=== PATIENT | male | born 1995 | race Caucasian/White ===

== ENCOUNTER 2022-12-31 15:28 | Emergency (ER) | payer OTHER, SELFPAY ==
--- NOTE | ~2022-12-31 | XR_ITS ---
EXAMINATION: XR CHEST CLINICAL INFORMATION: Shortness of breath. COMPARISON: None available. TECHNIQUE: 2 views of the chest were obtained. FINDINGS: Limited examination secondary to patient body habitus. No focal airspace opacity, pleural effusion or pneumothorax. No significant cardiomediastinal contour abnormality. No acute osseous findings. XR/XR chest 2V IMPRESSION: Limited examination secondary to patient body habitus without discrete acute cardiopulmonary findings.
--- NOTE | ~2022-12-31 | US_ITS ---
EXAMINATION: US VENOUS ULTRASOUND WITH DOPPLER LOWER EXTREMITY, BILATERAL CLINICAL INFORMATION: Pain. COMPARISON: None available. TECHNIQUE: Ultrasound of the deep veins is performed from the hip to the calf with compression sonography and color and pulse Doppler assessment. Spectral analysis with color-flow imaging is performed. FINDINGS: Examination is somewhat limited due to patient body habitus. RIGHT: There is normal venous compression and respiratory variation and augmented flow. The visualized common femoral vein, superficial femoral vein, profunda femoral vein, popliteal vein, and the trifurcation region shows no evidence of deep venous thrombosis. There is no significant popliteal fossa cyst. LEFT: There is normal venous compression and respiratory variation and augmented flow. The visualized common femoral vein, superficial femoral vein, profunda femoral vein, popliteal vein, and the trifurcation region shows no evidence of deep venous thrombosis. There is no significant popliteal fossa cyst. If the patient's symptoms persist, followup ultrasound in 5 days 7 days might be of value to exclude proximal propagation from a non-visualized calf vein. US/US venous duplex LE BI IMPRESSION: No DVT demonstrated in the bilateral lower extremities with the caveat that evaluation is partially limited due to patient body habitus. As above, a follow-up ultrasound in 5-7 days could be obtained as clinically indicated.
--- NOTE | 2022-12-31 15:42 | ED.GENADULT ---
HPI - General Adult General Chief complaint: Weakness Stated complaint: weakness in legs and arms Time Seen by Provider: 12/31/22 20:05 Source: patient, family (Patient's father), RN notes reviewed and old records reviewed Mode of arrival: ambulatory Limitations: no limitations History of Present Illness HPI narrative: 27-year-old male past medical history significant for obesity, asthma presents for evaluation of multiple complaints. Patient reports that he has not felt well with shortness of breath for the last 2 or 3 weeks He also endorses leg swelling for the last 2 or 3 weeks Denies any history of DVT or PE Patient states that his symptoms got significantly worse today to the point where he felt like he could not breathe at all He has reports that his left arm was shaking at the time which has not Currently the patient is quite comfortable. He denies any pain The patient endorses a poor diet and sedentary lifestyle Related Data Allergies Allergy/AdvReac Type Severity Reaction Status Date / Time No Known Allergies Allergy Verified 12/31/22 15:47 Review of Systems Constitutional: Constitutional: Reports lethargy and Reports malaise Cardiovascular: Cardiovascular: Reports leg edema, Reports dyspnea and Reports dyspnea on exertion Respiratory: Respiratory: Reports dyspnea and Reports dyspnea on exertion Gastrointestinal: Gastrointestinal: Denies abdominal pain, Denies nausea and Denies vomiting Musculoskeletal: Musculoskeletal: Denies back pain Integumentary/Breasts: Skin/Breast: Denies rash PMFSH Social History Social History Advance Directives: No Advance Directives Information Provided: Yes Physical Exam ED Vital Signs: Vital Signs - 24 hr 12/31/22 15:45 12/31/22 19:55 12/31/22 22:08 Temperature 97.4 F 99.0 F 98.6 F Pulse Rate 102 H 93 86 Respiratory Rate 20 18 18 Blood Pressure 170/102 H 153/104 H 167/97 H Pulse Oximetry 96 96 94 Oxygen Delivery Method Room Air Room Air Room Air BMI result Body Mass Index 52.1 Const General: healthy appearing, comfortable, no acute distress, alert and awake Nutritional Appearance: well nourished and obese Orientation/consciousness: patient oriented x3 HENMT Head: Yes normocephalic and Yes atraumatic Eyes Eyelids: Yes eyelids normal Conjunctivae: conjunctivae normal Sclerae: sclerae normal Corneas: corneas normal Pupils: Equal, round and reactive pupils present EOM: EOMs intact bilaterally Neck Neck: Yes full ROM Resp Effort & Inspection: normal respiratory effort, able to speak in complete sentences, no audible wheezes and not labored Auscultation: clear to auscultation bilaterally Skin General skin exam: no rashes or lesions noted and elasticity normal Neuro General: patient oriented x3 Cranial nerves: Yes Equal, round and reactive pupils present and Yes Bilaterally intact EOM present Cognition (Neuro): normal cognition Extrem Other: Moving all extremities well without any obvious deformities Course Course Course Narrative: This is a rapid medical exam: Additional HPI, ROS, PE not included below will be deferred to primary provider. Patient is a 27-year-old male with complaint of bilateral leg weakness while at work today, states he also felt shaky and was having bilateral hand tremors. Reports last week had an episode of acute shortness of breath and had to use someone else's inhaler. States has not seen a doctor in the last 20 years. Denies recent fevers. Denies chest pain or dyspnea currently. Denies dizziness or vision changes. Plan: labs, UA Reevaluation(s) Reevaluation #1: Discussed all results with the patient including ultrasound report suggesting repeat ultrasound in 5-7 days. Patient was educated on lifestyle changes including diet and exercise and he will be discharged to follow-up with his PCP Time: 22:53 Medical Decision Making Medical Decision Making [facility] Narrative: 27-year-old male presents for evaluation of shortness of breath and leg swelling. He denies any medical history with exception of he believes he has asthma. He has been using an [id number] inhaler with some relief of his symptoms. The patient is currently well appearing, vital signs are stable and he is asymptomatically exception of his leg swelling. He does have a sedentary lifestyle so will get ultrasound to rule out DVT. I feel this is less likely his symptoms are bilateral. No evidence of skin infection to suggest cellulitis. Will get chest x-ray to evaluate for pleural effusion/pneumonia given the shortness of breath and I added on a BNP. The patient's symptoms may be related to his morbid obesity with some degree of anxiety, thus far his workup has been unremarkable. Differential Diagnosis Shortness of breath Congestive heart failure Bronchitis Pneumonia DVT Obesity Sleep apnea Lab Data [facility] Lab Attestation statement: I reviewed the patient's lab results. Normal CBC, no significant chemistry abnormalities 12/31/22 16:24 12/31/22 16:24 Labs: Lab Results 12/31/22 12/31/22 12/31/22 Range/Units 16:24 16:24 19:57 WBC 10.2 (4.8-10.8) X10*3/uL RBC 4.91 (4.60-5.80) X10*6/uL Hgb 14.3 (14.0-18.0) g/dl Hct 43.4 (42.0-52.0) % MCV 88.4 (80.0-98.0) fL MCH 29.1 (27.0-33.0) pg MCHC 32.9 (31.0-36.0) g/dl RDW 11.9 (11.0-16.0) % Plt Count 231 (160-400) X10*3/uL MPV 10.5 (9.4-12.4) fL Immature Gran % (Auto) 0.5 H (0.0-0.4) % Neut % (Auto) 69.6 (45-73) % Lymph % (Auto) 19.6 L (20-40) % [place] % (Auto) 8.1 (2-11) % Eos % (Auto) 1.8 (0-4) % Baso % (Auto) 0.4 (0-2) % Lymph # (Auto) 2.0 (1.2-4.9) X10*3/uL [place] # (Auto) 0.8 (0.1-1.2) X10*3/uL Eos # (Auto) 0.2 (0.0-0.4) X10*3/uL Baso # (Auto) 0.0 (0.0-0.2) X10*3/uL Abs Immat Gran (auto) 0.05 H (0.00-0.03) X10*3/uL Absolute Neuts (auto) 7.1 (2.0-8.3) x10*3/uL Absolute Nucleated RBC 0.000 (0.0-0.012) X10*3/uL Nucleated RBC % (auto) 0.0 (0.0-0.2) /100WBC Sodium 139 (135-145) mmol/L Potassium 4.0 (3.3-5.1) mmol/L Chloride 104 (96-108) mmol/L Carbon Dioxide 27 (22-29) mmol/L Anion Gap 12 (12-20) BUN 16 (9-16) mg/dL Creatinine 0.90 (0.5-1.4) mg/dL Estim Creat Clear Calc 210.5 Estimated GFR > 60 Random Glucose 100 (60-115) mg/dL Calcium 9.3 (8.4-10.2) mg/dL Magnesium 1.9 (1.6-2.6) mg/dL Urine Color Yellow Urine Appearance Clear Urine pH 5.5 (5.0-9.0) Ur Specific Marissa 1.015 (1.005-1.025) Urine Protein Negative (Neg-Trace) mg/dL Urine Glucose (UA) Negative (Negative) mg/dL Urine Ketones Negative (Negative) mg/dL Urine Blood Negative (Negative) Urine Nitrite Negative (Negative) Ur Leukocyte Esterase Negative (Negative) Independent Interpretation I performed an independent interpretation of an: Plain X-Ray (No acute infiltrates) Radiology Impression Discussion of test interpretation with radiology: I have reviewed the radiologist's reading. (No evidence of DVT) Discharge Plan Discharge Clinical Impression: Shortness of breath, Dependent edema, Obesity Patient Disposition: Home, Self-Care Instructions: Heart Healthy Diet (ED) Additional Instructions: Your workup in the emergency department today was reassuring. Your blood work was within normal limits. Her chest x-ray was clear Your ultrasound does not show any evidence of blood clots. However the radiologist does recommend repeating an ultrasound in about 1 week Follow-up with your primary doctor or return for new or worsening symptoms
[2022-12-31 15:45] VITALS: BP 170/102; PULSE 102; RESP 20; TEMP 36.3; O2SAT 96; BMI 52.1
[2022-12-31 16:32] LABS: MANUAL DIFF FLAG NO
[2022-12-31 16:50] LABS: Basophils Percent Auto 0.4 % (0-2); Eosinophils Absolute Auto 0.2 X10*3/uL (0.0-0.4); Eosinophils Percent Auto 1.8 % (0-4); Hematocrit 43.4 % (42.0-52.0); Hemoglobin 14.3 g/dl (14.0-18.0); Imm Gran Abs Auto 0.05 X10*3/uL (0.00-0.03); Imm Gran Pct Auto 0.5 % (0.0-0.4); Lymphocytes Percent Auto 19.6 % (20-40); Mean Corpuscular HGB Conc 32.9 g/dl (31.0-36.0); Mean Corpuscular Hemoglobin 29.1 pg (27.0-33.0); Mean Corpuscular Volume 88.4 fL (80.0-98.0); Mean Platelet Volume 10.5 fL (9.4-12.4); Monocytes Absolute Auto 0.8 X10*3/uL (0.1-1.2); Monocytes Percent Auto 8.1 % (2-11); Neutrophils Absolute Auto 7.1 x10*3/uL (2.0-8.3); Neutrophils Percent Auto 69.6 % (45-73); Platelet Count 231 X10*3/uL (160-400); Red Blood Count 4.91 X10*6/uL (4.60-5.80); Red Cell Distribution Width 11.9 % (11.0-16.0); White Blood Count 10.2 X10*3/uL (4.8-10.8)
[2022-12-31 16:53] LABS: Anion Gap 12 (12-20); Blood Urea Nitrogen 16 mg/dL (9-16); Calcium 9.3 mg/dL (8.4-10.2); Carbon Dioxide 27 mmol/L (22-29); Chloride 104 mmol/L (96-108); Creatinine Clr Calc Pharmacy 210.5; Estimated Glomerular Filt Rate > 60; Glucose Random 100 mg/dL (60-115); Magnesium 1.9 mg/dL (1.6-2.6); Sodium 139 mmol/L (135-145)
[2022-12-31 19:55] VITALS: BP 153/104; PULSE 93; RESP 18; TEMP 37.2; O2SAT 96
[2022-12-31 20:04] LABS: Appearance Urine Clear; Color Urine Yellow; Glucose Urine UA Negative (Negative); Leukocyte Esterase Urine Negative (Negative); Nitrite Urine Negative (Negative); PH 5.5 (5.0-9.0); Specific Gravity - Urine 1.015 (1.005-1.025); Urine Blood Negative (Negative); Urine Ketones Negative (Negative); Urine Protein Negative (Neg-Trace)
[2022-12-31 22:08] VITALS: BP 167/97; PULSE 86; RESP 18; TEMP 37; O2SAT 94
[2022-12-31 23:31] LABS: B Type Natriuretic Peptide < 10 pg/mL (<100)
== END 2022-12-31 23:04 | disposition home or self-care (01) ==
PROVIDERS: Physician Assistant; Registered Nurse Emergency; Emergency Provider Emergency Medicine
DX: R06.02 Shortness of breath (principal); R60.0 Localized edema; R53.1 Weakness; Z79.899 Other long term (current) drug therapy
CPT/HCPCS: 36415; 71046; 80048; 81003; 83735; 83880; 85025; 93970; 99283; 99284

== ENCOUNTER 2024-08-17 14:54 | Outpatient (AMB) | payer OTHER, SELFPAY ==
[2024-08-17 15:38] VITALS: BP 148/90; PULSE 87; TEMP 36.4; O2SAT 97; BMI 54.6
--- NOTE | 2024-08-17 15:38 | A.OFFPC_ITS ---
Vital Signs 08/17/24 15:38 Height 5 ft 10.24 in Weight 383 lb 6 oz BMI 54.6 BP 148/90 H Blood Pressure Location Lt brachial Position Sitting Pulse 87 Pulse Source Pulse Oximeter Temp 97.5 F Temp Source Temporal Artery Scan Pulse Oximetry (%) 97 Oxygen Delivery Method Room Air Intake Visit Reasons: New patient Intake Note: Patient is a new patient here to establish care for swelling of both legs, nose bleeds, HTN, ADHD, Autism, Obese, Asthma. Transferring care from [facility]. Medical records have been requested today. Insole Lip Turner Required: No Accompanied by: Grand Parent Allergies No Known Allergies Allergy (Verified 08/17/24 15:52) Medication List - Last Reconciled 08/17/24 by Richard Head PA-C No Known Home Meds Tobacco use date assessed: 08/17/24 Dental Screening Dental Screen Date: 08/17/24 Did you have a dental visit in the last 12 months?: Yes Did you have a dental problem in the last 6 months where you did not have access to dental care?: No Was dental information given to patient?: Patient has dentist HPI New patient HPI Details The patient is a 28-year-old male presenting with multiple health concerns focusing primarily on high blood pressure, obstructive sleep apnea, ADHD and autism spectrum disorder. His elevated blood pressure has been noted for some time, correlating with a significant family history of hypertension. Despite previous emergency interventions for subsequent leg swelling, he has not pursued pharmacological management. Autism spectrum disorder:/ ADHD Has been diagnosed as a child, has been having social issues. Had a job a few years ago though was unable to continue his job due to symptoms related to his autism. Family looking for support for both his brother and him as they both have autism and ADHD. Currently unable to work or landed part-time job due to the diagnosis of ADHD and autism. Obstructive sleep apnea remains a central concern. Although CPAP therapy was introduced, its discontinuation was due to non-compliance with treatment, resulting from discomfort and financial constraints. His apnea condition has been further aggravated by weight gain, compounding his overall health risks including dyslipidemia and fatty liver disease indications. Asthma represents another long-standing issue, with recent exacerbations following a viral respiratory illness. Although managed previously, his asthma appears to augment the complexity of his respiratory concerns, especially when combined with his history of childhood asthma and intermittent seasonal allergic symptoms. Complicated by a history of hemorrhoids, fluctuating symptoms present ongoing discomfort, albeit currently stabilized. The patient's health is further complicated by incidents of nephrolithiasis and episodic nasal bleeding, denoting an overarching need for structured health intervention and management. [facility] Social History Housing: House e-Cigarette/Vaping Use: Never Used service: No Current occupational status: unemployed Cognitive needs: No Hearing needs: No Vision needs: No Questionnaire PHQ-9 Over the last 2 weeks, how often have you been bothered by any of the following problems? 1. Little interest or pleasure in doing things: several days 2. Feeling down, depressed, or hopeless: not at all 3. Trouble falling or staying asleep, or sleeping too much: nearly every day 4. Feeling tired or having little energy: several days 5. Poor appetite or overeating: nearly every day 6. Feeling bad about yourself - or that you are a failure or have let yourself or your family down: not at all 7. Trouble concentrating on things, such as reading the newspaper or watching television: not at all 8. Moving or speaking so slowly that other people could have noticed. Or the opposite - being so fidgety or restless that you have been moving around a lot more than usual: not at all 9. Thoughts that you would be better off or of hurting yourself in some way: not at all Total score: 8 Depression Screening Interpretation: Positive Depression Screening Follow-up: Existing condition Depression Screening Done: Yes 81169 - PHQ-9 Billing: Yes Source: Developed by Drs. Bay Guevara, Tammie Pacheco, González Pennington and colleagues, with an educational wil from [employer]. Thrive Questionnaire I am a: Patient What is your living situation today?: I have a steady place to live Within the past 12 months, did the food you bought not last and you didn't have the money to get more?: Sometimes True Within the past 12 months, did you worry whether your food would run out before you got money to buy more?: Sometimes True Do you have trouble paying for medicines?: Yes Do you have trouble getting transportation to medical appointments?: No Do you have trouble paying your heating and electricity bill?: No Do you have trouble taking care of your child, family member or friend?: No Do you have trouble with day-to-day activities such as bathing, preparing meals, shopping, managing finances, etc.?: Yes Are you currently unemployed and looking for a job?: Yes Are you interested in more education?: Yes Please select the resources that you would like help with: Job search/training Currently or been in a relationship where the following occur: No concerns reported THRIVE Score: 2 AUDIT C Alcohol Use Questionnaire (AUDIT-C) 1. How often do you have a drink containing alcohol?: Monthly or less 2. How many drinks containing alcohol do you have on a typical day when you are drinking?: 1 or 2 3. How often do you have six or more drinks on one occasion?: Never Total Score: 1 SULEMAN-7 AMB Questionnaire SULEMAN-7 Feeling nervous, anxious, or on edge: 0 = Not at all Not being able to stop or control worryin = Not at all Worrying too much about different things: 0 = Not at all Trouble relaxin = Not at all Being so restless that it is hard to sit still: 0 = Not at all Becoming easily annoyed or irritable: 1 = Several days Feeling afraid as if something awful might happen: 0 = Not at all Total SULEMAN-7 score (0-4 normal; 5-9 mild; 10-14 moderate; 15-21 severe): 1 Source: Developed by Drs. Bay Guevara, Tammie Pacheco, González Pennington and colleagues, with an educational wil from [employer]. SULEMAN-7 Assessment Billing SULEMAN-7 Assessment Tool: SULEMAN-7 Assessment 57235 Review of Systems Const Denies headache(s) Eyes Denies loss of vision ENT Denies vertigo, Denies dizziness, Denies headache(s) and Denies sore throat Card Denies chest pain, Denies leg edema and Denies lightheadedness Resp Denies cough, Denies hemoptysis and Denies wheezing GI Denies abdominal pain, Denies melena, Denies constipation, Denies diarrhea and Denies vomiting Denies dysuria, Denies urinary frequency and Denies urinary urgency Musc Denies arthralgias, Denies joint swelling, Denies numbness and Denies tingling Neuro Denies Abnormal speech present, Denies behavioral changes, Denies vertigo, Denies dizziness, Denies headache(s), Denies loss of vision, Denies memory loss, Denies numbness and Denies tingling Psych Denies anxiety, Denies behavioral changes, Denies depression, Denies memory loss and Denies panic attacks Marcello/Lymph Denies easy bleeding and Denies easy bruising Aller/Immun Denies wheezing Physical exam (Primary Care) Vital Signs: Last Vital Signs Temp 97.5 F 08/17/24 15:38 Pulse 87 08/17/24 15:38 BP 148/90 H 08/17/24 15:38 Pulse Ox 97 08/17/24 15:38 Oxygen Delivery Method Room Air 08/17/24 15:38 BMI result Body Mass Index 54.6 BMI Assessment/Plan discussion: High BMI High, discussed plan: lifestyle, weight reduction, dietary and physical activity Tobacco/Smoking Status: Tobacco use Status Tobacco use date assessed 08/17/24 08/17/24 15:47 e-Cigarette/Vaping Use Never Used 08/17/24 15:47 PHQ-9: PHQ-9 Score PHQ-9: Total score 8 08/17/24 15:50 Depression Screening Interpretation: Positive Depression Screening Follow-up: Existing condition Currently or been in a relationship where the following occur: No concerns reported Const General: healthy appearing, no acute distress, alert and awake Nutritional Appearance: well nourished Orientation/consciousness: oriented to person, oriented to place and oriented to time HENMT Ears: TM's normal bilaterally General nose exam: Normal nasal mucous membranes and turbinates present Eyes Conjunctivae: conjunctivae normal Sclerae: sclerae normal Pupils: Equal, round and reactive pupils present Neck Neck: Yes no lymphadenopathy and Yes no JVD Thyroid: Thyroid normal Carotids: no bruits Resp Effort & Inspection: normal respiratory effort and not tachypneic Auscultation: no crackles, no rales, no rhonchi and no wheezes Cardio Rate: regular rate Rhythm: regular rhythm Heart sounds: no murmurs and normal S1 and S2 GI Palpation (GI): Soft to palpation, nontender, no hepatomegaly and no splenomegaly Auscultation: normal bowel sounds Skin General skin exam: no rashes or lesions noted and dry skin Neuro General: oriented to person, oriented to place and oriented to time Cranial nerves: Yes Equal, round and reactive pupils present Speech: No Abnormal speech present Gait exam (Neuro): Normal gait present Motor exam (neuro): no tremor noted Extrem Right upper extremity: full ROM Left upper extremity: full ROM Right lower extremity: full ROM; no edema Left lower extremity: full ROM; no edema Psych Mental Status: mental status grossly normal Speech and movement: Normal speech and movement present Affect: normal affect Attitude: cooperative Thought process: Normal thought process present Office Procedures Flu Questionnaire Does the patient have a severe egg allergy?: No Does the patient have severe life threatening allergies?: No Does the patient have a fever or illness today?: No Has the patient ever had Guillain-[place] Syndrome?: No Has the patient ever had any past reaction to a flu shot?: No Immunizations Fluarix Triv [id number] (PF) 45 mcg (15 mcg x 3)/0.5 mL IM syringe Performing Provider: Richard Head PA-C Performing Location[facility] [place] [facility] Administered by: Jayde Irwin LPN on 08/17/24 15:49 Dose Route Admin Location Dispensed Lot Number Expiration Date NDC Client Development Director 0.5 mL IM Left Deltoid 0.5 mL [id number] 12/18/24 97100-996-62 [employer] VIS Given Date VIS Provided VIS Publication Date 08/17/24 Single Vaccine 21 Eligibility Eligibility Date Funding Source Not [facility] Eligible 08/17/24 Private Coding Diagnoses Primary hypertension I10 Hypertension type: primary hypertension Class 3 obesity E66.813 Screening for diabetes mellitus (DM) Z13.1 IZZY (obstructive sleep apnea) G47.33 Mixed hyperlipidemia E78.2 Hyperlipidemia type: mixed hyperlipidemia Acute hemorrhoid K64.9 Autism F84.0 Attention deficit hyperactivity disorder (ADHD), predominantly inattentive type F90.0 Attention deficit-hyperactivity disorder type: predominantly inattentive Lyme disease A69.20 Additional Codes PHQ-9 - 57393 - PHQ-9 Billing: Yes ([id number]) SULEMAN-7 Assessment Billing - SULEMAN-7 Assessment Tool: SULEMAN-7 Assessment 64184 ([id number]) Assessment & Plan Assessment & Plan (1) HTN (hypertension): Code(s): I10 - Essential (primary) hypertension Category: Medical Qualifiers: Hypertension type: primary hypertension Qualified Code(s): I10 - Essential (primary) hypertension Plan: Patient's blood pressure elevated today in office. He is willing to start low- dose blood pressure medication (2) Class 3 obesity: Code(s): E66.813 - Obesity, class 3 Category: Medical Plan: Patient does understand his BMI is well over 40 will work on being more physically active and adapting to better eating habits to reduce his weight. We considered the idea of seeing a (3) Screening for diabetes mellitus (DM): Code(s): Z13.1 - Encounter for screening for diabetes mellitus Category: Medical Plan: As per HPI (4) IZZY (obstructive sleep apnea): Code(s): G47.33 - Obstructive sleep apnea (adult) (pediatric) Category: Medical Plan: Patient has a history of obstructive sleep apnea and did have CPAP machine though was intolerant of the mask and could not continue treatment. He continues to snore and have apneic episodes. Does have uncontrolled high blood pressure which could be a sequelae of his obstructive sleep apnea. Patient willing to start Zepbound for both his obstructive sleep apnea and weight Patient and family interested in retesting for sleep apnea in the in labs setting (5) HLD (hyperlipidemia): Code(s): E78.5 - Hyperlipidemia, unspecified Category: Medical Qualifiers: Hyperlipidemia type: mixed hyperlipidemia Qualified Code(s): E78.2 - Mixed hyperlipidemia Plan: As per family patient does have high cholesterol. Advised on lifestyle and dietary modifications. Will recheck fasting lipid panel consider medication. (6) Acute hemorrhoid: Code(s): K64.9 - Unspecified hemorrhoids Category: Medical Plan: Reports recent bleeding hemorrhoids. Has been better since using cream. Advised on stool softening and increasing fluids (7) Autism: Code(s): F84.0 - Autistic disorder Category: Medical Plan: Patient has been diagnosed as a child with autism. Seem to be higher functioning. Has been unable to work due to the symptoms around his autism and ADHD disorder. Has not been able to Land another part-time job. Family asking for continue to help with services and financial help through disability office (8) ADHD: Code(s): F90.9 - Attention-deficit hyperactivity disorder, unspecified type Category: Medical Qualifiers: Attention deficit-hyperactivity disorder type: predominantly inattentive Qualified Code(s): F90.0 - Attention-deficit hyperactivity disorder, predominantly inattentive type Plan: As above (9) Lyme disease: Code(s): A69.20 - Lyme disease, unspecified Category: Medical Plan: There has been apparent history a tick bite previously. Will retest for Lyme. Orders: Orders Influenza [id number] Immunization Today Z23 - Encounter for immunization RT PSG in-lab sleep study Today G47.33 - Obstructive sleep apnea (adult) (pediatric) Lipid Panel Today E78.2 - Mixed hyperlipidemia Comprehensive [place]. Panel Fast Today E78.2 - Mixed hyperlipidemia Complete Blood Count no Diff Today E78.2 - Mixed hyperlipidemia Lyme IgG/IgM w/reflex to WB Today A69.20 - Lyme disease, unspecified Medications: New blood pressure monitor test once a day as needed 1 ea 0RF I10 - Essential (primary) hypertension hydrochlorothiazide 12.5 mg PO DAILY 90 tabs 1RF I10 - Essential (primary) hypertension tirzepatide (weight loss) (Zepbound) for 4 weeks 2.5 mg (0.5 mL) subcut QWEEK 4 weeks 2 mL 0RF G47.33 - Obstructive sleep apnea (adult) (pediatric) docusate sodium (Colace) 100 mg PO BID 30 days 60 caps 1RF K64.9 - Unspecified hemorrhoids
--- OUTSIDE RECORDS SUMMARY | 2024-08-17 18:12 | XMS_ITS | Clinical Summary ---
Author Organization [facility] Address [address] [place] [phone] Phone Care Team Providers Care Laundry Press Operator Name Role Phone Johan Queen MD Primary Care Provider [phone] Allergies No known active allergies Medications No known medications Immunizations Immunization Administration Dates Next Due DTaP 11/25/1998,05/25/1995,05/22/1994 HPV Vaccine 9 Valent 03/19/2014,05/16/2013,03/10 Hep A, Adult 01/03/2019 Hep B, ped/adol 05/22/1994 HiB 02/23/1995,05/22/1994 IPV 11/25/1998 Influenza, injectable, quadr ivalent, preservative free 05/27/2017,05/11/2016 Influenza, injectable,pedro pablo valent, preservative free, pediatric 03/28/2015,03/19/2014,03/10/2013,04/02,04/18/2010,04/05/2009 MMR 11/25/1998,04/29/1995 Meningococcal Conj (Menactra) MCV4P 03/19/2014,0 11/22/2008 OPV 05/22/1994 Tdap 05/27/2017 Varicella 11/22/2008,11/21/1997 Family History Medical History Relation Name Comments No Known Problems Father No Known Problems Mother Relation Name Status Comments Father Mother Social History Tobacco Use Types Packs/Day Years Used Date Smoking Tobacco: Never Assessed Hunger/Food Answer Date Recorded No 03/16/2020 Stable Housing Answer Date Recorded No 03/16/2020 Transportation Concerns Answer Date Rec orded No 03/16/2020 Hazards in Home Answer Date Recorded No 05/07/2020 Financing Utilities Answer Date Recorde d No 05/07/2020 Safety at Home Answer Date Recorded No 05/07/2020 Outside Support Answer Date Recorded No 05/07/2020 Understanding Health Concerns Answer Da te Recorded No 05/07/2020 Financing Health Concerns Answer Date R ecorded No 05/07/2020 Missing School or Work Answer Date Krewin rded No 05/07/2020 Sex and Gender Information Value Date Recorded Sex Assigned at Not on file Legal Sex Male 11:56 AM EDT Gender Identity Not on file Sexual Orientation Not on file Last Filed Vital Signs Vital Sign Reading Time Taken Comments Blood Pressure 128/86 01/03/2019 9:24 AM EDT Pulse 92 01/03/2019 9:24 AM EDT Temperature 36.7 ??C (98 ??F) 01/03/2019 9:24 AM EDT Respiratory Rate - - Oxygen Saturation - - Inhaled Oxygen Concentration - - Weight 142 kg (312 lb 3 oz) 01/03/2019 9:24 AM E DT Height 179.1 cm (5' 10.5 ) 01/03/2019 9:24 AM ED T Body Mass Index 44.16 01/03/2019 9:24 AM EDT Plan of Treatment Health Maintenance Due Date Last Done Comments Hepatitis B Vaccines (2 of 3 - 3-dose series) 06/19/1994 05/22/1994 IPV Vaccines (3 of 3 - 4-dose series) 05/27/1999 11/25/1998, 05/22/1994 Influenza Vaccines (#1) 2024 05/27/20 17, 05/11/2016, 03/28/2015, Additional history exists COVID-19 Vaccine ( season) 2024 DTaP,Tdap,and Td Vaccines (5 - Td or Tdap) 05/27/2027 05/27/2017, 11/25/1998, 05/25/1995, Additional history exists HIB Vaccines Completed 02/23/1995, 05/22/1994 MMR Vaccines Completed 11/25/1998, 04/29/1995 Varicella Vaccines Completed 11/22/2008, 11/21/1997 HPV Vaccines Completed 03/19/2014, 04/22, 03/10/2013 Meningococcal Vaccine Aged Out 03/19/2014, 009 No longer eligible based on patient's age to complete this topic Hepatitis A Vaccines Aged Out 01/03/2019 No long er eligible based on patient's age to complete this topic Men B Vaccine Aged Out No longer elig ible based on patient's age to complete this topic Pneumococcal Vaccine Aged Out No long er eligible based on patient's age to complete this topic Insurance [employer] [id number] [place] [address] MEDICAID [facility] Address: [address] [place] [address] [place] [address] Care Teams Laundry Press Operator Relationship Specialty Start Date End Date Johan Queen MD [facility] [place] [address] PCP - General Pediatrics 12/12/18
== END 2024-08-17 16:41 | disposition home or self-care (01) ==
PROVIDERS: PCP Physician Assistant; Visit Provider Physician Assistant
DX: Z23 Encounter for immunization (principal)

== ENCOUNTER → 2024-08-17 14:54 | Outpatient (BNVA) | payer OTHER, SELFPAY | PROVIDERS: Visit Provider Physician Assistant | DX: Z23 Encounter for immunization (principal); I10 Essential (primary) hypertension; E66.813 Obesity, class 3; G47.33 Obstructive sleep apnea (adult) (pediatric); E78.2 Mixed hyperlipidemia; K64.9 Unspecified hemorrhoids; F84.0 Autistic disorder; F90.0 Attention-deficit hyperactivity disorder, predominantly inattentive type; A69.20 Lyme disease, unspecified | CPT/HCPCS: 90471; 90656; 96127; 99202 ==

== ENCOUNTER 2024-08-22 09:22 | Outpatient (REF) | payer OTHER, SELFPAY ==
[2024-08-22 09:54] LABS: Hematocrit 42.7 % (42.0-52.0); Hemoglobin 14.3 g/dl (14.0-18.0); Mean Corpuscular HGB Conc 33.5 g/dl (31.0-36.0); Mean Corpuscular Hemoglobin 29.2 pg (27.0-33.0); Mean Corpuscular Volume 87.3 fL (80.0-98.0); Mean Platelet Volume 10.2 fL (9.4-12.4); Platelet Count 234 X10*3/uL (160-400); Red Blood Count 4.89 X10*6/uL (4.60-5.80); White Blood Count 5.8 X10*3/uL (4.8-10.8)
[2024-08-22 10:28] LABS: Alanine Aminotransferase 73 U/L (0-40); Albumin Level 3.9 g/dL (3.5-5.0); Alkaline Phosphatase 114 U/L (39-117); Anion Gap 11 (12-20); Aspartate Amino Transferase 47 U/L (5-37); Bilirubin Total 0.7 mg/dL (0.0-1.0); Blood Urea Nitrogen 18 mg/dL (9-16); Carbon Dioxide 29 mmol/L (22-29); Chloride 106 mmol/L (96-108); Cholesterol 144 mg/dL (<200); Estimated Glomerular Filt Rate > 60; Glucose Fasting 98 mg/dL (60-99); HDL Cholesterol 35 mg/dL (>40); LDL Cholesterol Calculated 92 mg/dL (<100); Potassium 4.2 mmol/L (3.3-5.1); Sodium 142 mmol/L (135-145); Total Protein 8.8 g/dL (6.5-8.0); Triglycerides 85 mg/dL (<150)
--- OUTSIDE RECORDS SUMMARY | 2024-08-22 10:30 | XMS_ITS | Clinical Summary ---
Author Organization [facility] Address [address] [place] [address] Phone Care Team Providers Care Occupational Therapist Rehab Manager Name Role Phone Johan Queen MD Primary Care Provider [phone] Allergies No known active allergies Medications No [...] 05/07/2020 Missing School or Work Answer Date Kerwin rded No 05/07/2020 Sex and Gender Information [...] age to complete this topic Insurance [employer] [id number] [place] [address] MEDICAID [facility] Address: [address] [place] [address] [place] [address] Care Teams Occupational Therapist Rehab Manager Relationship Specialty Start Date End Date Johan Queen MD [facility] [place] [address] PCP - General Pediatrics 12/12/18
[2024-08-23 16:29] LABS: Lyme Abs Screen <0.90 index
== END 2024-08-22 09:23 | disposition home or self-care (01) ==
LOC: HO.LAB 09:22
PROVIDERS: PCP Physician Assistant; Visit Provider Physician Assistant
DX: E78.2 Mixed hyperlipidemia (principal); A69.20 Lyme disease, unspecified
CPT/HCPCS: 36415; 80053; 80061; 85027; 86617; 86618

== ENCOUNTER → 2024-09-12 20:30 | Outpatient (BNV) | payer OTHER, SELFPAY | PROVIDERS: PCP Physician Assistant; Visit Provider Psychiatry & Neurology Neurology | DX: G47.33 Obstructive sleep apnea (adult) (pediatric) (principal) | CPT/HCPCS: 95810 ==

== ENCOUNTER → 2024-09-12 20:30 | Outpatient (REF) | payer OTHER, SELFPAY | LOC: HO.SL 20:30 | PROVIDERS: PCP Physician Assistant; Visit Provider Physician Assistant | DX: G47.33 Obstructive sleep apnea (adult) (pediatric) (principal) | CPT/HCPCS: 95810 ==

== ENCOUNTER 2024-09-25 09:47 | Outpatient (REF) | payer OTHER, SELFPAY ==
--- NOTE | ~2024-09-25 | US_ITS ---
EXAMINATION: US ABDOMEN LIMITED HISTORY: R74.8 - Abnormal levels of other serum enzymes TECHNIQUE: Real-time grayscale ultrasound imaging of the right upper quadrant was performed and images were reviewed. COMPARISON: There are no prior studies for comparison. FINDINGS: The examination is limited by patient body habitus. Liver: The liver demonstrates diffusely increased echotexture, consistent with steatosis. Evaluation for masses is limited. No intrahepatic biliary ductal dilatation is identified. Gallbladder and biliary tree: The gallbladder is unremarkable, without evidence of calculi, wall thickening, or pericholecystic fluid. There is no sonographic Solares sign. The common bile duct is normal in caliber measuring 7 mm. Right Kidney: The right kidney measures 12.7 cm in length. The right kidney is unremarkable, without evidence of masses, hydronephrosis, or calculi. Pancreas: The pancreatic head, neck, and body are unremarkable. The pancreatic tail is obscured by bowel gas. Abdominal aorta and inferior vena cava: The visualized portions of the abdominal aorta and inferior vena cava are normal in caliber. There is no free fluid in the right upper quadrant. US/US abdomen limited IMPRESSION: Limited examination due to patient body habitus. Hepatic steatosis. Electronically signed by: Bay Chow MD 09/25/2024 02:01 PM EDT
--- OUTSIDE RECORDS SUMMARY | 2024-09-25 11:20 | XMS_ITS | Clinical Summary ---
Author Organization [facility] Address [address] [place] [address] Phone Care Team Providers Care Dye Stand Loader Name Role Phone Johan Queen MD Primary Care Provider [phone] Allergies No known active allergies Medications No [...] age to complete this topic Insurance [employer] [id number] [place] [address] MEDICAID [facility] Address: [address] [place] [address] [place] [address] Care Teams Dye Stand Loader Relationship Specialty Start Date End Date Johan Queen MD [facility] [place] [address] PCP - General Pediatrics 12/12/18
== END 2024-09-25 09:48 | disposition home or self-care (01) ==
LOC: HO.US 09:47
PROVIDERS: PCP Physician Assistant; Visit Provider Physician Assistant
DX: R74.8 Abnormal levels of other serum enzymes (principal)
CPT/HCPCS: 76705

== ENCOUNTER → 2024-09-25 09:50 | Outpatient (BNV) | payer OTHER, SELFPAY | PROVIDERS: PCP Physician Assistant; Visit Provider Radiology Diagnostic Radiology | DX: R74.01 Elevation of levels of liver transaminase levels (principal); K76.0 Fatty (change of) liver, not elsewhere classified | CPT/HCPCS: 76705 ==

== ENCOUNTER 2024-09-28 10:42 | Outpatient (AMB) | payer OTHER, SELFPAY ==
--- NOTE | 2024-09-28 11:15 | A.OFFPC_ITS ---
Vital Signs 09/28/24 11:41 Height 5 ft 10.24 in Weight 388 lb 4 oz BMI 55.3 BP 162/100 H Blood Pressure Location Lt brachial Position Semi Braun's Pulse 110 H Pulse Source Pulse Oximeter Temp 97.3 F Temp Source Temporal Artery Scan Pulse Oximetry (%) 96 Oxygen Delivery Method Room Air Intake Visit Reasons: Follow up blood pressure Adobe Layer Helper Required: No Accompanied by: Family/Other Allergies No Known Allergies Allergy (Verified 09/28/24 12:07) Medication List - Last Reconciled 09/28/24 by Richard Head PA-C blood pressure monitor test once a day as needed docusate sodium (Colace) 100 mg PO BID 30 days hydrochlorothiazide 12.5 mg PO DAILY phentermine 37.5 mg PO DAILY 28 days Tobacco use date assessed: 08/17/24 Dental Screening Dental Screen Date: 08/17/24 HPI Follow up blood pressure HPI Details The patient is a 28-year-old male presenting with multiple health concerns focusing primarily on high blood pressure, obstructive sleep apnea, ADHD and autism spectrum disorder. His elevated blood pressure has been noted for some time, correlating with a significant family history of hypertension. Despite previous emergency interventions for subsequent leg swelling, he has not pursued pharmacological management. .. Hypertension: Has been started on hydrochlorothiazide though unfortunately blood pressure remains elevated. Unfortunately has gained weight since last office visit. For his obesity we had tried to prescribe him zepbound though insurance did not cover requesting him to fill oral medication. Did prescribe phentermine though due to his high blood pressures this is a contraindication. Try zepbound again. Autism spectrum disorder:/ ADHD Has been diagnosed as a child, has been having social issues. Had a job a few years ago though was unable to continue his job due to symptoms related to his autism. Family looking for support for both his brother and him as they both have autism and ADHD. Currently unable to work or landed part-time job due to the diagnosis of ADHD and autism. Obstructive sleep apnea remains a central concern. Although CPAP therapy was introduced, its discontinuation was due to non-compliance with treatment, resulting from discomfort and financial constraints. He did undergo a new sleep study that did show obstructive sleep apnea. He did compliant with a nasal CPAP mask much better. Asthma represents another long-standing issue, with recent exacerbations following a viral respiratory illness. Although managed previously, his asthma appears to augment the complexity of his respiratory concerns, especially when combined with his history of childhood asthma and intermittent seasonal allergic symptoms. Elevated liver enzymes: Did go get an ultrasound of abdomen that did show evidence of fatty liver. Will work on weight loss as treatment. [facility] Social History Housing: House e-Cigarette/Vaping Use: Never Used service: No Current occupational status: unemployed Cognitive needs: No Hearing needs: No Vision needs: No Questionnaire Thrive Questionnaire Date Thrive assessed: 08/17/24 I am a: Patient What is your living situation today?: I have a steady place to live Within the past 12 months, did the food you bought not last and you didn't have the money to get more?: Sometimes True Within the past 12 months, did you worry whether your food would run out before you got money to buy more?: Sometimes True Do you have trouble paying for medicines?: Yes Do you have trouble getting transportation to medical appointments?: No Do you have trouble paying your heating and electricity bill?: No Do you have trouble taking care of your child, family member or friend?: No Do you have trouble with day-to-day activities such as bathing, preparing meals, shopping, managing finances, etc.?: Yes Are you currently unemployed and looking for a job?: Yes Are you interested in more education?: Yes Please select the resources that you would like help with: Job search/training Currently or been in a relationship where the following occur: No concerns reported THRIVE Score: 2 Review of Systems Const Denies headache(s) Eyes Denies loss of vision ENT Denies vertigo, Denies dizziness, Denies headache(s) and Denies sore throat Card Denies chest pain, Denies leg edema and Denies lightheadedness Resp Denies cough, Denies hemoptysis and Denies wheezing GI Denies abdominal pain, Denies melena, Denies constipation, Denies diarrhea and Denies vomiting Denies dysuria, Denies urinary frequency and Denies urinary urgency Musc Denies arthralgias, Denies joint swelling, Denies numbness and Denies tingling Neuro Denies Abnormal speech present, Denies behavioral changes, Denies vertigo, Denies dizziness, Denies headache(s), Denies loss of vision, Denies memory loss, Denies numbness and Denies tingling Psych Denies anxiety, Denies behavioral changes, Denies depression, Denies memory loss and Denies panic attacks Marcello/Lymph Denies easy bleeding and Denies easy bruising Aller/Immun Denies wheezing Physical exam (Primary Care) Vital Signs: Last Vital Signs Temp 97.3 F 09/28/24 11:41 Pulse 110 H 09/28/24 11:41 BP 162/100 H 09/28/24 11:41 Pulse Ox 96 09/28/24 11:41 Oxygen Delivery Method Room Air 09/28/24 11:41 Care Plan Goal for BP management: Will work on weight loss and dietary modifications. Will add on lisinopril Next steps: Continue working on lifestyle and dietary modifications. Continue the stay adherence to medication lisinopril monitor blood pressure at home. BMI result Body Mass Index 55.3 BMI Assessment/Plan discussion: High BMI High, discussed plan: lifestyle, weight reduction, dietary and physical activity Tobacco/Smoking Status: Tobacco use Status Tobacco use date assessed 08/17/24 09/28/24 11:15 e-Cigarette/Vaping Use Never Used 09/28/24 11:15 Thrive Assessment: Date of Thrive Assessment Date Thrive assessed 08/17/24 09/28/24 11:15 Currently or been in a relationship where the following occur: No concerns reported Const General: healthy appearing, no acute distress, alert and awake Nutritional Appearance: well nourished Orientation/consciousness: oriented to person, oriented to place and oriented to time HENMT Ears: TM's normal bilaterally General nose exam: Normal nasal mucous membranes and turbinates present Eyes Conjunctivae: conjunctivae normal Sclerae: sclerae normal Pupils: Equal, round and reactive pupils present Neck Neck: Yes no lymphadenopathy and Yes no JVD Thyroid: Thyroid normal Carotids: no bruits Resp Effort & Inspection: normal respiratory effort and not tachypneic Auscultation: no crackles, no rales, no rhonchi and no wheezes Cardio Rate: regular rate Rhythm: regular rhythm Heart sounds: no murmurs and normal S1 and S2 GI Palpation (GI): Soft to palpation, nontender, no hepatomegaly and no splenomegaly Auscultation: normal bowel sounds Skin General skin exam: no rashes or lesions noted and dry skin Neuro General: oriented to person, oriented to place and oriented to time Cranial nerves: Yes Equal, round and reactive pupils present Speech: No Abnormal speech present Gait exam (Neuro): Normal gait present Motor exam (neuro): no tremor noted Extrem Right upper extremity: full ROM Left upper extremity: full ROM Right lower extremity: full ROM; no edema Left lower extremity: full ROM; no edema Psych Mental Status: mental status grossly normal Speech and movement: Normal speech and movement present Affect: normal affect Attitude: cooperative Thought process: Normal thought process present Coding Level of Care Code Est Pt Level 4 (05623) Diagnoses Primary hypertension I10 Hypertension type: primary hypertension Class 3 obesity E66.813 IZZY (obstructive sleep apnea) G47.33 Fatty liver K76.0 Assessment & Plan Assessment & Plan (1) HTN (hypertension): Code(s): I10 - Essential (primary) hypertension Category: Medical Qualifiers: Hypertension type: primary hypertension Qualified Code(s): I10 - Essential (primary) hypertension Plan: Patient's blood pressure elevated today in office. He has been taking hydrochlorothiazide though feels it has not been effective. Blood pressures at home have been 150s to 160s systolic. He does have obstructive sleep apnea ordered on recent sleep study Will transitioned to lisinopril hydrochlorothiazide for better blood pressure control. Goal blood pressures to be below 140/90 (2) Class 3 obesity: Code(s): E66.813 - Obesity, class 3 Category: Medical Plan: Patient does understand his BMI is well over 40 will work on being more physically active and adapting to better eating habits to reduce his weight. We have tried to prescribe him Zepobund though has not been covered due to needing try alternative. Tried alternative phentermine though not able to take this medication due to risk of cardiac events and higher blood pressures. Will try zepbound again with the stipulation that he is unable to tolerate oral medication due to cardiac concerns. (3) IZZY (obstructive sleep apnea): Code(s): G47.33 - Obstructive sleep apnea (adult) (pediatric) Category: Medical Plan: Recent sleep study showing obstructive sleep apnea. He was on a CPAP machine with a facial mask though was unable to tolerate. He apparently was able to tolerate a nasal mask. (4) Fatty liver: Code(s): K76.0 - Fatty (change of) liver, not elsewhere classified Category: Medical Plan: Patient's most recent liver enzymes elevated. Ultrasound confirm fatty liver. Will work on dietary modifications and weight loss. Medications: New CPAP (CPAP Machine/Device) need for CPAP sitting 6-10 cm of water. 1 ea 0RF G47.33 - Obstructive sleep apnea (adult) (pediatric) [CPAP- nasal mask] As directed 1 ea 0RF G47.33 - Obstructive sleep apnea (adult) (pediatric) tirzepatide (weight loss) (Zepbound) for 4 weeks 2.5 mg (0.5 mL) subcut QWEEK 2 mL 0RF 4 weeks E66.813 - Obesity, class 3, G47.33 - Obstructive sleep apnea (adult) (pediatric) lisinopril-hydrochlorothiazide 10-12.5 mg 1 tab PO DAILY 30 tabs 1RF 30 days G47.33 - Obstructive sleep apnea (adult) (pediatric), I10 - Essential (primary) hypertension triamcinolone acetonide 0.1% 1 appl topical DAILY 80 grams 1RF 30 days G47.33 - Obstructive sleep apnea (adult) (pediatric) Discontinued hydrochlorothiazide Discontinued Reason: Doctor's Order 12.5 mg PO DAILY 90 tabs 1RF I10 - Essential (primary) hypertension phentermine must administer 30 minutes before or 1-2 hours after breakfast Discontinued Reason: Doctor's Order 37.5 mg PO DAILY 28 days 28 caps 0RF E66.813 - Obesity, class 3
[2024-09-28 11:41] VITALS: BP 162/100; PULSE 110; TEMP 36.3; O2SAT 96; BMI 55.3
--- OUTSIDE RECORDS SUMMARY | 2024-09-28 12:43 | XMS_ITS | Clinical Summary ---
Author Organization [facility] Address [address] [place] [phone] Phone Care Team Providers Care Auto Hauler Name Role Phone Johan Queen MD Primary Care Provider [phone] Allergies No known active allergies Medications No [...] age to complete this topic Insurance [employer] [id number] [place] [address] [place] [address] Care Teams Auto Hauler Relationship Specialty Start Date End Date Johan Queen MD [facility] [facility] [place] [address] PCP - General Pediatrics 12/12/18
== END 2024-09-28 13:29 | disposition home or self-care (01) ==
LOC: HO.HMCH 10:43
PROVIDERS: PCP Physician Assistant; Visit Provider Physician Assistant
DX: I10 Essential (primary) hypertension (principal); E66.813 Obesity, class 3; Z68.43 Body mass index [BMI] 50.0-59.9, adult; G47.33 Obstructive sleep apnea (adult) (pediatric); K76.0 Fatty (change of) liver, not elsewhere classified

== ENCOUNTER → 2024-09-28 10:42 | Outpatient (BNVA) | payer OTHER, SELFPAY | PROVIDERS: PCP Physician Assistant; Visit Provider Physician Assistant | DX: I10 Essential (primary) hypertension (principal); G47.33 Obstructive sleep apnea (adult) (pediatric); F90.9 Attention-deficit hyperactivity disorder, unspecified type; F84.0 Autistic disorder; E66.813 Obesity, class 3; K76.0 Fatty (change of) liver, not elsewhere classified; Z68.43 Body mass index [BMI] 50.0-59.9, adult | CPT/HCPCS: 99212 ==

== ENCOUNTER 2024-11-23 14:23 | Outpatient (AMB) | payer OTHER, SELFPAY ==
--- NOTE | 2024-11-23 15:08 | A.OFFPC_ITS ---
Vital Signs 11/23/24 15:10 Height 5 ft 10.24 in Weight 382 lb 15.087 oz BMI 54.6 BP 150/70 H Blood Pressure Location Lt brachial Position Sitting Pulse 92 Pulse Source Pulse Oximeter Temp 97.3 F Temp Source Temporal Artery Scan Pulse Oximetry (%) 97 Oxygen Delivery Method Room Air Intake Visit Reasons: 8 week f/u Intake Note: Patient is here to follow up on HTN, IZZY, Obesity. Type Disk Quality Control Supervisor Required: No Manager Scientific: Present Accompanied by: Grand Parent Allergies No Known Allergies Allergy (Verified 11/23/24 15:18) Medication List - Last Reconciled 11/23/24 by Richard Head PA-C blood pressure monitor test once a day as needed CPAP (CPAP Machine/Device) need for CPAP sitting 6-10 cm of water. [CPAP- nasal mask As directed] docusate sodium (Colace) 100 mg PO BID 30 days lisinopril-hydrochlorothiazide 10-12.5 mg 1 tab PO DAILY tirzepatide (weight loss) (Zepbound) 5 mg (0.5 mL) subcut QWEEK 4 weeks triamcinolone acetonide 0.1% 1 appl topical DAILY 30 days Tobacco use date assessed: 11/23/24 Dental Screening Dental Screen Date: 08/17/24 HPI 8 week f/u HPI Details The patient is a 28-year-old male presenting with multiple health concerns focusing primarily on high blood pressure, obstructive sleep apnea, ADHD and autism spectrum disorder. His elevated blood pressure has been noted for some t cristiane, correlating with a significant family history of hypertension. Concern--> has had skin eruptions over his legs arms and torso over the past several years, unclear if this is related to a skin picking disorder versus psoriasis versus eczema. Refer to Dermatology for evaluation and possible biopsy .. Hypertension: Patient's blood pressure slightly elevated today in office, he reports that home blood pressures has been slightly elevated though does get normal readings at times. Will continue his current dose of lisinopril hydrochlorothiazide and work extensively on weight reduction in hopes to reduce his blood pressure We have gotten insurance coverage for his up on and has been able to lose some weight since last office visit Obesity: He continues on a GLP 1 and has lost 6 lb since initiation. He has not been as physically active as he should. He has difficult time being motivated to be more physically active. He denies any intolerable side effects from GLP 1 in his willing to continue up titrating dose. Autism spectrum disorder:/ ADHD Has been diagnosed as a child, has been having social issues. Had a job a few years ago though was unable to continue his job due to symptoms related to his autism. Family looking for support for both his brother and him as they both have autism and ADHD. Currently unable to work or landed part-time job due to the diagnosis of ADHD and autism. Obstructive sleep apnea remains a central concern. Although CPAP therapy was introduced, its discontinuation was due to non-compliance with treatment, resulting from discomfort and financial constraints. He did undergo a new sleep study that did show severe obstructive sleep apnea. He has upcoming appointment with [place] pul[facility]. He did compliant with a nasal CPAP mask much better. Asthma represents another long-standing issue, with recent exacerbations following a viral respiratory illness. Although managed previously, his asthma appears to augment the complexity of his respiratory concerns, especially when combined with his history of childhood asthma and intermittent seasonal allergic symptoms. Elevated liver enzymes: Did go get an ultrasound of abdomen that did show evidence of fatty liver. Will work on weight loss as treatment. [facility] Surgical History History of surgery of head History of removal of cyst Social History Housing: House Alcohol intake: never Patient Tobacco Use Status: Never used Tobacco e-Cigarette/Vaping Use: Never Used Second Hand Smoke Exposure: No service: No Current occupational status: unemployed Cognitive needs: No Hearing needs: No Vision needs: No Questionnaire Thrive Questionnaire Date Thrive assessed: 08/17/24 I am a: Patient What is your living situation today?: I have a steady place to live Within the past 12 months, did the food you bought not last and you didn't have the money to get more?: Sometimes True Within the past 12 months, did you worry whether your food would run out before you got money to buy more?: Sometimes True Do you have trouble paying for medicines?: Yes Do you have trouble getting transportation to medical appointments?: No Do you have trouble paying your heating and electricity bill?: No Do you have trouble taking care of your child, family member or friend?: No Do you have trouble with day-to-day activities such as bathing, preparing meals, shopping, managing finances, etc.?: Yes Are you currently unemployed and looking for a job?: Yes Are you interested in more education?: Yes Please select the resources that you would like help with: Job search/training Currently or been in a relationship where the following occur: No concerns reported THRIVE Score: 2 SULEMAN-7 AMB Questionnaire SULEMAN-7 Date SULEMAN - 7 assessed: 08/17/24 Source: Developed by Drs. Bay Guevara, Tammie Pacheco, González Pennington and colleagues, with an educational wil from [employer]. Review of Systems Const Denies headache(s) Eyes Denies loss of vision ENT Denies vertigo, Denies dizziness, Denies headache(s) and Denies sore throat Card Denies chest pain, Denies leg edema and Denies lightheadedness Resp Denies cough, Denies hemoptysis and Denies wheezing GI Denies abdominal pain, Denies melena, Denies constipation, Denies diarrhea and Denies vomiting Denies dysuria, Denies urinary frequency and Denies urinary urgency Musc Denies arthralgias, Denies joint swelling, Denies numbness and Denies tingling Neuro Denies Abnormal speech present, Denies behavioral changes, Denies vertigo, Denies dizziness, Denies headache(s), Denies loss of vision, Denies memory loss, Denies numbness and Denies tingling Psych Denies anxiety, Denies behavioral changes, Denies depression, Denies memory loss and Denies panic attacks Marcello/Lymph Denies easy bleeding and Denies easy bruising Aller/Immun Denies wheezing Physical exam (Primary Care) Vital Signs: Last Vital Signs Temp 97.3 F 11/23/24 15:10 Pulse 92 11/23/24 15:10 BP 150/70 H 11/23/24 15:10 Pulse Ox 97 11/23/24 15:10 Oxygen Delivery Method Room Air 11/23/24 15:10 BMI result Body Mass Index 54.6 BMI Assessment/Plan discussion: High BMI High, discussed plan: lifestyle, weight reduction, dietary and physical activity Tobacco/Smoking Status: Tobacco use Status Tobacco use date assessed 11/23/24 11/23/24 15:16 Patient Tobacco Use Status Never used Tobacco 11/23/24 15:16 e-Cigarette/Vaping Use Never Used 11/23/24 15:09 Thrive Assessment: Date of Thrive Assessment Date Thrive assessed 08/17/24 11/23/24 15:09 Currently or been in a relationship where the following occur: No concerns reported Const Other: Morbidly obese General: no acute distress, alert and awake Nutritional Appearance: well nourished Orientation/consciousness: oriented to person, oriented to place and oriented to time HENMT Ears: TM's normal bilaterally General nose exam: Normal nasal mucous membranes and turbinates present Eyes Conjunctivae: conjunctivae normal Sclerae: sclerae normal Pupils: Equal, round and reactive pupils present Neck Neck: Yes no lymphadenopathy and Yes no JVD Thyroid: Thyroid normal Carotids: no bruits Resp Effort & Inspection: normal respiratory effort and not tachypneic Auscultation: no crackles, no rales, no rhonchi and no wheezes Cardio Rate: regular rate Rhythm: regular rhythm Heart sounds: no murmurs and normal S1 and S2 GI Palpation (GI): Soft to palpation, nontender, no hepatomegaly and no splenomegaly Auscultation: normal bowel sounds Skin General skin exam: no rashes or lesions noted and dry skin Neuro General: oriented to person, oriented to place and oriented to time Cranial nerves: Yes Equal, round and reactive pupils present Speech: No Abnormal speech present Gait exam (Neuro): Normal gait present Motor exam (neuro): no tremor noted Extrem Right upper extremity: full ROM Left upper extremity: full ROM Right lower extremity: full ROM; no edema Left lower extremity: full ROM; no edema Psych Mental Status: mental status grossly normal Speech and movement: Normal speech and movement present Affect: normal affect Attitude: cooperative Thought process: Normal thought process present Coding Level of Care Code Est Pt Level 4 (37667) Diagnoses Primary hypertension I10 Hypertension type: primary hypertension Class 3 obesity E66.813 IZZY (obstructive sleep apnea) G47.33 Onychomycosis B35.1 Rash/skin eruption R21 Assessment & Plan Assessment & Plan (1) HTN (hypertension): Code(s): I10 - Essential (primary) hypertension Category: Medical Qualifiers: Hypertension type: primary hypertension Qualified Code(s): I10 - Essential (primary) hypertension Plan: Patient's blood pressure elevated today in office. Patient continues with lisinopril hydrochlorothiazide which has reduced his blood pressure though still slightly elevated. Will continue his antihypertensive medication as is and continue working hard on reducing his weight (2) Class 3 obesity: Code(s): E66.813 - Obesity, class 3 Category: Medical Plan: Patient does understand his BMI is 54.6, has lost 6 lb since last office visit on low-dose GLP 1. He would like to continue up titrating GLP 1. Advised on trying to be more physically active to get more benefit from GLP 1. (3) IZZY (obstructive sleep apnea): Code(s): G47.33 - Obstructive sleep apnea (adult) (pediatric) Category: Medical Plan: Recent sleep study showing obstructive sleep apnea. He was on a CPAP machine with a facial mask though was unable to tolerate. He apparently was able to tolerate a nasal mask. He has upcoming appointment with [place] (4) Onychomycosis: Code(s): B35.1 - Tinea unguium Category: Medical Plan: Has onychomycosis of his toenails, has been having difficulty cutting his toes. Will like to see a tank assembler for nail grooming (5) Rash/skin eruption: Code(s): R21 - Rash and other nonspecific skin eruption Category: Medical Plan: Has been using triamcinolone over his skin eruptions over his lower extremities though still seem to reoccur. Unclear if this is a psoriasis picture. Will refer to Dermatology for evaluation and possible biopsy for diagnosis. This is quite a possibility that this is a skin picking disorder as well and will consider psychiatric evaluation Orders: Orders Comprehensive [place]. Panel Fast Today I10 - Essential (primary) hypertension Complete Blood Count no Diff Today I10 - Essential (primary) hypertension Lipid Panel Today E78.2 - Mixed hyperlipidemia Referrals Dermatology Referral R21 - Rash and other nonspecific skin eruption Podiatry Referral B35.1 - Tinea unguium Medications: New tirzepatide (weight loss) (Zepbound) 7.5 mg (0.5 mL) subcut QWEEK 4 weeks 2 mL 0RF E66.813 - Obesity, class 3, E78.2 - Mixed hyperlipidemia, G47.33 - Obstructive sleep apnea (adult) (pediatric) On Hold tirzepatide (weight loss) (Zepbound) Hold Comment: Doctor's Order 5 mg (0.5 mL) subcut QWEEK 4 weeks 2 mL 0RF E66.813 - Obesity, class 3
[2024-11-23 15:10] VITALS: BP 150/70; PULSE 92; TEMP 36.3; O2SAT 97; BMI 54.6
--- OUTSIDE RECORDS SUMMARY | 2024-11-23 17:01 | XMS_ITS | Clinical Summary ---
Author Organization [facility] Address [address] [place] [address] Phone Care Team Providers Care Manager Of Environmental Services Name Role Phone Johan Queen MD Primary Care Provider [phone] Allergies No known active allergies Medications No [...] age to complete this topic Insurance [employer] [id number] [place] [address] MEDICAID [facility] [place] Address: [address] [place] [address] [place] [address] Care Teams Manager Of Environmental Services Relationship Specialty Start Date End Date Johan Queen MD [facility] [place] [address] PCP - General Pediatrics 12/12/18
== END 2024-11-23 15:47 | disposition home or self-care (01) ==
LOC: HO.HMCH 14:23
PROVIDERS: PCP Physician Assistant; Visit Provider Physician Assistant
DX: I10 Essential (primary) hypertension (principal); E66.813 Obesity, class 3; Z68.43 Body mass index [BMI] 50.0-59.9, adult; G47.33 Obstructive sleep apnea (adult) (pediatric); B35.1 Tinea unguium; R21 Rash and other nonspecific skin eruption

== ENCOUNTER → 2024-11-23 14:23 | Outpatient (BNVA) | payer OTHER, SELFPAY | PROVIDERS: PCP Physician Assistant; Visit Provider Physician Assistant | DX: I10 Essential (primary) hypertension (principal); G47.33 Obstructive sleep apnea (adult) (pediatric); F90.9 Attention-deficit hyperactivity disorder, unspecified type; F84.0 Autistic disorder; J45.909 Unspecified asthma, uncomplicated; E66.813 Obesity, class 3; B35.1 Tinea unguium; R21 Rash and other nonspecific skin eruption; Z68.43 Body mass index [BMI] 50.0-59.9, adult | CPT/HCPCS: 99212 ==

== ENCOUNTER 2024-12-25 10:09 | Outpatient (AMB) | payer OTHER, SELFPAY ==
--- OUTSIDE RECORDS SUMMARY | 2024-11-30 14:00 | XMS_ITS | Continuity of Care Document ---
Author Organization [facility] Address [address] [place] [address] Phone Care Team Providers Care Sports Agent Name Role Phone Karla RAHMAN, Francisco Javier Unavailable Unavailable Advance Directives Directive Yes / No Effective Date File Name No Information Encounters Encounter Description Practice Location Reason(s) For Visit Diagnoses Date Provider Providers Copied on Encounter [facility], [address], [place], [id number], [place] tel:[phone] [place] [facility] No Information 5 Karla Mcintyre. [address], [address], [place], [address], [place]. tel:[phone] Family History Family Member Type Diagnosis Age At Onset No Information Payers Payer name Insurance type Covered green party ID Authoriza tion(s) No Information Social History Type Description Quantity Date Captured Comments Sex Male Smoking Status No Information Chief Complaint And Reason For Visit No Information Reason For Referral Reason For Referral No Information Plan Of Treatment Date Type Action Status Appointment Richard Bradford BOOKED Appointment Richard Bradford BOOKED History Of Present Illness Encounter Date Complaint History Of Prese nt Illness No Information Functional Status Date Functional Assessmen t No Information Instructions Date Instruction Additional Infor mation No Information Assessments Type Assessment Date No Information Patient Care Teams Name Effective Dates (start - stop) Status Members No Information
[2024-12-25 10:30] VITALS: BP 120/74; PULSE 86; O2SAT 95; BMI 53.6
--- NOTE | 2024-12-25 10:30 | A.OFFVIS_ITS ---
Vital Signs 12/25/24 10:30 Height 5 ft 10 in Weight 373 lb 10.936 oz BMI 53.6 BP 120/74 Blood Pressure Location Lt brachial Position Sitting Pulse 86 Pulse Source Pulse Oximeter Pulse Oximetry (%) 95 Oxygen Delivery Method Room Air Intake Visit Reasons: Obstructive sleep apnea Allergies No Known Allergies Allergy (Verified 11/23/24 15:18) HPI HPI Obstructive sleep apnea: Details: Richard is a pleasant 29-year-old male, never smoker with underlying high blood pressure, ADHD, autism spectrum disorder and obstructive sleep apnea. Today he is accompanied by his grandmother. He was referred by his primary care physician after a sleep study confirmed severe obstructive sleep apnea with 117 events per hour, which is significantly above the threshold for severe apnea. The patient has a history of using a CPAP machine two years ago but found it difficult to use due to discomfort and frequent removal during sleep. Recently, he underwent another sleep study where he used a nasal mask, which he tolerated well, and reported feeling comfortable and sleeping better during the test. The patient's oxygen levels during the study were slightly below the cutoff for a brief period, but no significant hypoxemia was noted. The patient also has a history of asthma, which has been asymptomatic for a while. He reports no recent episodes and believes he may have outgrown the condition, although he remains cautious, especially during allergy seasons. [facility] Surgical History History of surgery of head History of removal of cyst Social History Housing: House Alcohol intake: never Patient Tobacco Use Status: Never used Tobacco e-Cigarette/Vaping Use: Never Used Second Hand Smoke Exposure: No service: No Current occupational status: unemployed Cognitive needs: No Hearing needs: No Vision needs: No Review of Systems Const Denies chills, Denies excessive sweating, Denies fever(s), Denies headache(s) and Denies night sweats Eyes Denies dry eyes, Denies irritation and Denies itchy eyes ENT Reports Normal hearing present, Denies headache(s), Denies nasal congestion, Denies nasal discharge, Denies post nasal drip and Denies sore throat Card Denies chest pain, Denies chest pain at rest, Denies chest pain with activity, Denies claudication, Denies leg edema, Denies dyspnea, Denies dyspnea on exertion, Denies orthopnea and Denies paroxysmal nocturnal dyspnea Resp Denies chest congestion, Denies cough, Denies excessive phlegm production, Denies pain on inspiration, Denies pain with cough, Denies dyspnea, Denies dyspnea on exertion, Denies stridor and Denies wheezing Musc Denies myalgias Neuro Reports Normal hearing present and Denies headache(s) Endo Denies excessive sweating Marcello/Lymph Denies lymphadenopathy Aller/Immun Denies itchy eyes, Denies seasonal rhinorrhea and Denies wheezing Physical Exam Vital Signs: Last Vital Signs Pulse 86 12/25/24 10:30 BP 120/74 12/25/24 10:30 Pulse Ox 95 12/25/24 10:30 Oxygen Delivery Method Room Air 12/25/24 10:30 BMI result Body Mass Index 53.6 Const General: cooperative, healthy appearing, comfortable, no acute distress, well developed and alert Nutritional Appearance: obese Orientation/consciousness: patient oriented x3 Limitations: no limitations HEENT Head: Yes normal to inspection, Yes normocephalic and Yes atraumatic Ears: hearing grossly normal bilaterally and external ears normal Eyes General: appearance normal, both eyes and all related structures Eyelids: Yes eyelids normal Sclerae: sclerae normal EOM: EOMs intact bilaterally Neck Neck: Yes normal visual inspection and Yes no lymphadenopathy Lymphatic: no lymphadenopathy noted Chest Chest palpation & inspection: normal inspection of the chest Resp Effort & Inspection: normal respiratory effort, able to speak in complete sentences, no audible wheezes, no cough, no stridor, not tachypneic, no tripod positioning and no use of accessory muscles Auscultation: clear to auscultation bilaterally Cardio Jugular venous distension: no JVD Rate: regular rate Rhythm: regular rhythm Skin Other: warm, dry General skin exam: no rashes or lesions noted Neuro General: patient oriented x3 Cranial nerves: Yes Normal hearing present Cognition (Neuro): normal cognition Gait exam (Neuro): Normal gait present Extrem General: Yes normal to inspection, Yes capillary refill normal, Yes no clubbing, cyanosis or edema and Yes no pedal edema Psych Appearance: grossly normal and well kempt Speech and movement: Normal speech and movement present and Clear speech present Affect: normal affect Attitude: cooperative Thought process: Normal thought process present Thought content: Normal thought content present Insight: Good insight present (Psych) Judgement: Good judgement present (Psych) Assessment & Plan Assessment & Plan (1) IZZY (obstructive sleep apnea): Code(s): G47.33 - Obstructive sleep apnea (adult) (pediatric) Category: Medical Plan The plan for managing the patient's obstructive sleep apnea includes initiating CPAP therapy with a nasal mask, as it was well-tolerated during the recent sleep study. The CPAP machine will be set to a pressure of 12 cm H2O, and the patient will be monitored for compliance and effectiveness. The patient is advised to aim for at least four hours of CPAP use per night to meet insurance requirements and improve sleep quality. Weight loss is recommended as a long-term strategy to reduce the severity of sleep apnea events. For asthma, no immediate intervention is required as the patient is currently asymptomatic, but he is advised to monitor for any respiratory symptoms, especially during allergy seasons. All questions were answered and patient is in agreement of plan. Will follow-up in 3 months or sooner if needed. Coding Level of Care Code New Pt Level 3 (14276) Diagnoses IZZY (obstructive sleep apnea) G47.33
--- OUTSIDE RECORDS SUMMARY | 2024-12-25 10:55 | XMS_ITS | Clinical Summary ---
Author Organization [facility] Address [address] [place] [address] Phone Care Team Providers Care Printing Supplies Sales Representative Name Role Phone Richard Head Primary Care Provider Social History Tobacco Use Types Packs/Day Years Used Date Smoking Tobacco: Never Assessed Sex and Gender Information Value Date Recorded Sex Assigned at Not on file Legal Sex Male 9:48 PM EST Gender Identity Not on file Sexual Orientation Not on file Plan of Treatment Upcoming Encounters Date Type Department Care Team ([facility] Contact Info) Description 02/22/2025 9:45 AM EDT Consult Orthopedic Surgery - [place] [address] [phone] Lenin Monae, DPM [address] [address] Health Maintenance Due Date Last Done Comments DTaP,Tdap,and Td Vaccines (1 - Tdap) 2012 Hepatitis B Vaccines (1 of 3 - 19+ 3-dose series) 2012 COVID-19 Vaccine ( - 2023-2 5 season) 2024 Depression Screening 11/27/2024 HIV Screening 11/27/2024 Hepatitis C Screening 11/27/2024 Social Influencers of Health Screening 11/27/2024 Influenza Vaccine (#1) 2025 Hepatitis A Vaccines Aged Out 01/03/2019 No long er eligible based on patient's age to complete this topic HIB Vaccines Aged Out No longer eligi ble based on patient's age to complete this topic HPV Vaccines Aged Out No longer eligi ble based on patient's age to complete this topic IPV Vaccines Aged Out No longer eligi ble based on patient's age to complete this topic MMR Vaccines Aged Out No longer eligi ble based on patient's age to complete this topic Meningococcal ACWY Vaccine Aged Out N o longer eligible based on patient's age to complete this topic Meningococcal B Vaccine Aged Out No l onger eligible based on patient's age to complete this topic Pneumococcal Vaccine: Pediat rics (0 to 5 Years) and At-Risk Patients (6 to 64 Years) Aged Out No longer eligi ble based on patient's age to complete this topic RSV Immunization Patients Un néstor 20 months Aged Out No longer eligible b ased on patient's age to complete this topic Varicella Vaccines Aged Out No longer eligible based on patient's age to complete this topic Insurance [facility] Care Teams Printing Supplies Sales Representative Relationship Specialty Start Date End Date Richard Head PA [address] [place] [phone] PCP - General Physician Handstitching Machine Collar Feller 11/27/24
--- OUTSIDE RECORDS SUMMARY | 2024-12-25 10:55 | XMS_ITS | Clinical Summary ---
Author Organization [facility] Address [address] [place] [phone] Phone Care Team Providers Care Rubber Curer Name Role Phone Johan Queen MD Primary Care Provider [phone] Allergies No known active allergies Medications No [...] 92 01/03/2019 9:24 AM EDT Temperature 36.7 C (98 F) 01/03/2019 9:24 AM EDT Respiratory Rate - [...] 3 - 4-dose series) 05/27/1999 11/25/1998, 05/22/1994 COVID-19 Vaccine ( season) 2024 Influenza Vaccines (#1) 2025 05/27/20 17, 05/11/2016, 03/28/2015, Additional history exists DTaP,Tdap,and Td Vaccines (5 - Td or [...] age to complete this topic Insurance [employer] [id number] MEDICAID [facility] [place] Address: [address] [place] [address] [place] [address] Care Teams Rubber Curer Relationship Specialty Start Date End Date Johan Queen MD [facility] [facility] [place] [address] PCP - General Pediatrics 12/12/18
== END 2024-12-25 11:00 | disposition home or self-care (01) ==
LOC: HO.HPS 10:10
PROVIDERS: PCP Physician Assistant; Referring Provider Physician Assistant; Visit Provider Nurse Practitioner Family
DX: G47.33 Obstructive sleep apnea (adult) (pediatric) (principal)
CPT/HCPCS: 99203

== ENCOUNTER → 2024-12-25 10:09 | Outpatient (BNVA) | payer OTHER, SELFPAY | PROVIDERS: PCP Physician Assistant; Referring Provider Physician Assistant; Visit Provider Nurse Practitioner Family | DX: G47.33 Obstructive sleep apnea (adult) (pediatric) (principal); I10 Essential (primary) hypertension | CPT/HCPCS: 99202 ==

== ENCOUNTER 2025-02-08 11:06 | Outpatient (AMB) | payer OTHER, SELFPAY ==
[2025-02-08 11:23] VITALS: BP 124/80; PULSE 83; TEMP 36.3; O2SAT 96; BMI 53.0
--- NOTE | 2025-02-08 11:23 | MHC.PC.OV ---
Vital Signs 02/08/25 11:23 Height 5 ft 10 in Weight 369 lb 4 oz BMI 53.0 BP 124/80 Blood Pressure Location Lt brachial Position Sitting Pulse 83 Pulse Source Pulse Oximeter Temp 97.3 F Temp Source Temporal Artery Scan Pulse Oximetry (%) 96 Oxygen Delivery Method Room Air Intake Visit Reasons: f/u weight check Accompanied by: Grand Parent Allergies No Known Allergies Allergy (Verified 02/08/25 11:30) Medication List - Last Reconciled 02/08/25 by Richard Head PA-C blood pressure monitor test once a day as needed CPAP (CPAP Machine/Device) need for CPAP sitting 6-10 cm of water. [CPAP- nasal mask As directed] docusate sodium (Colace) 100 mg PO BID PRN lisinopril-hydrochlorothiazide 10-12.5 mg 1 tab PO DAILY tirzepatide (weight loss) (Zepbound) 7.5 mg (0.5 mL) subcut QWEEK 4 weeks tirzepatide (weight loss) (Zepbound) 5 mg (0.5 mL) subcut QWEEK 4 weeks Held on 11/23/24. Instructions: Doctor's Order triamcinolone acetonide 0.1% 1 appl topical DAILY 30 days Tobacco use date assessed: 02/08/25 Dental Screening Dental Screen Date: 02/08/25 Did you have a dental visit in the last 12 months?: Yes Did you have a dental problem in the last 6 months where you did not have access to dental care?: No Was dental information given to patient?: Patient has dentist HPI f/u weight check HPI Details The patient is a 28-year-old male presenting with multiple health concerns focusing primarily on high blood pressure, obstructive sleep apnea, ADHD and autism spectrum disorder. His elevated blood pressure has been noted for some time, correlating with a significant family history of hypertension. .. Hypertension: Patient's blood pressure much improved today in office. Has started on an obstructive sleep apnea machine which may maybe helping, Will continue his current dose of lisinopril hydrochlorothiazide and work extensively on weight reduction in hopes to reduce his blood pressure Class 3 Obesity: He continues on a GLP 1 and has lost weight. Today's BMI at 53, upon initiation of GLP 1 BMI was 55. Has noted reduce in his appetite and has a bit of a better relationship with food. He has not been as physically active as he should. He has difficult time being motivated to be more physically active. He denies any intolerable side effects from GLP 1 in his willing to continue up titrating dose. Autism spectrum disorder:/ ADHD Has been diagnosed as a child, has been having social issues. Had a job a few years ago though was unable to continue his job due to symptoms related to his autism. Family looking for support for both his brother and him as they both have autism and ADHD. Currently unable to work or landed part-time job due to the diagnosis of ADHD and autism. Obstructive sleep apnea : Has establish care with pulmonology, has started a CPAP machine on a nightly basis and reports better sleep.. Asthma represents another long-standing issue, with recent exacerbations following a viral respiratory illness. Although managed previously, his asthma appears to augment the complexity of his respiratory concerns, especially when combined with his history of childhood asthma and intermittent seasonal allergic symptoms. Elevated liver enzymes: Did go get an ultrasound of abdomen that did show evidence of fatty liver. Will work on weight loss as treatment. [facility] Surgical History History of surgery of head History of removal of cyst Social History Housing: House Alcohol intake: never Patient Tobacco Use Status: Never used Tobacco e-Cigarette/Vaping Use: Never Used Second Hand Smoke Exposure: No service: No Current occupational status: unemployed Cognitive needs: No Hearing needs: No Vision needs: No Questionnaire PHQ-9 Over the last 2 weeks, how often have you been bothered by any of the following problems? 1. Little interest or pleasure in doing things: several days 2. Feeling down, depressed, or hopeless: not at all 3. Trouble falling or staying asleep, or sleeping too much: nearly every day 4. Feeling tired or having little energy: several days 5. Poor appetite or overeating: nearly every day 6. Feeling bad about yourself - or that you are a failure or have let yourself or your family down: not at all 7. Trouble concentrating on things, such as reading the newspaper or watching television: not at all 8. Moving or speaking so slowly that other people could have noticed. Or the opposite - being so fidgety or restless that you have been moving around a lot more than usual: not at all 9. Thoughts that you would be better off or of hurting yourself in some way: not at all Total score: 8 Depression Screening Interpretation: Positive Depression Screening Follow-up: Existing condition Depression Screening Done: Yes 33379 - PHQ-9 Billing: Yes Source: Developed by Drs. Bay Guevara, Tammie Pacheco, González Pennington and colleagues, with an educational wil from [employer]. Thrive Questionnaire Date Thrive assessed: 08/17/24 I am a: Patient What is your living situation today?: I have a steady place to live Within the past 12 months, did the food you bought not last and you didn't have the money to get more?: Sometimes True Within the past 12 months, did you worry whether your food would run out before you got money to buy more?: Sometimes True Do you have trouble paying for medicines?: Yes Do you have trouble getting transportation to medical appointments?: No Do you have trouble paying your heating and electricity bill?: No Do you have trouble taking care of your child, family member or friend?: No Do you have trouble with day-to-day activities such as bathing, preparing meals, shopping, managing finances, etc.?: Yes Are you currently unemployed and looking for a job?: Yes Are you interested in more education?: Yes Please select the resources that you would like help with: Job search/training Currently or been in a relationship where the following occur: No concerns reported THRIVE Score: 2 AUDIT C Alcohol Use Questionnaire (AUDIT-C) 1. How often do you have a drink containing alcohol?: Monthly or less 2. How many drinks containing alcohol do you have on a typical day when you are drinking?: 1 or 2 3. How often do you have six or more drinks on one occasion?: Never Total Score: 1 SULEMAN-7 AMB Questionnaire SULEMAN-7 Date SULEMAN - 7 assessed: 08/17/24 Feeling nervous, anxious, or on edge: 0 = Not at all Not being able to stop or control worryin = Not at all Worrying too much about different things: 0 = Not at all Trouble relaxin = Not at all Being so restless that it is hard to sit still: 0 = Not at all Becoming easily annoyed or irritable: 1 = Several days Feeling afraid as if something awful might happen: 0 = Not at all Total SULEMAN-7 score (0-4 normal; 5-9 mild; 10-14 moderate; 15-21 severe): 1 Source: Developed by Drs. Bay Guevara, Tammie Pacheco, González Pennington and colleagues, with an educational wil from [employer]. Review of Systems Const Denies headache(s) Eyes Denies loss of vision ENT Denies vertigo, Denies dizziness, Denies headache(s) and Denies sore throat Card Denies chest pain, Denies leg edema and Denies lightheadedness Resp Denies cough, Denies hemoptysis and Denies wheezing GI Denies abdominal pain, Denies melena, Denies constipation, Denies diarrhea and Denies vomiting Denies dysuria, Denies urinary frequency and Denies urinary urgency Musc Denies arthralgias, Denies joint swelling, Denies numbness and Denies tingling Neuro Denies Abnormal speech present, Denies behavioral changes, Denies vertigo, Denies dizziness, Denies headache(s), Denies loss of vision, Denies memory loss, Denies numbness and Denies tingling Psych Denies anxiety, Denies behavioral changes, Denies depression, Denies memory loss and Denies panic attacks Marcello/Lymph Denies easy bleeding and Denies easy bruising Aller/Immun Denies wheezing Physical exam (Primary Care) Vital Signs: Last Vital Signs Temp 97.3 F 02/08/25 11:23 Pulse 83 02/08/25 11:23 BP 124/80 02/08/25 11:23 Pulse Ox 96 02/08/25 11:23 Oxygen Delivery Method Room Air 02/08/25 11:23 BMI result Body Mass Index 53.0 BMI Assessment/Plan discussion: High BMI High, discussed plan: lifestyle, weight reduction, dietary and physical activity Tobacco/Smoking Status: Tobacco use Status Tobacco use date assessed 02/08/25 02/08/25 11:27 Patient Tobacco Use Status Never used Tobacco 02/08/25 11:27 e-Cigarette/Vaping Use Never Used 02/08/25 11:27 PHQ-9: PHQ-9 Score PHQ-9: Total score 8 02/08/25 11:27 Depression Screening Interpretation: Positive Depression Screening Follow-up: Existing condition Thrive Assessment: Date of Thrive Assessment Date Thrive assessed 08/17/24 02/08/25 11:27 Currently or been in a relationship where the following occur: No concerns reported Const General: healthy appearing, no acute distress, alert and awake Nutritional Appearance: well nourished Orientation/consciousness: oriented to person, oriented to place and oriented to time HENMT Ears: TM's normal bilaterally General nose exam: Normal nasal mucous membranes and turbinates present Eyes Conjunctivae: conjunctivae normal Sclerae: sclerae normal Pupils: Equal, round and reactive pupils present Neck Neck: Yes no lymphadenopathy and Yes no JVD Thyroid: Thyroid normal Carotids: no bruits Resp Effort & Inspection: normal respiratory effort and not tachypneic Auscultation: no crackles, no rales, no rhonchi and no wheezes Cardio Rate: regular rate Rhythm: regular rhythm Heart sounds: no murmurs and normal S1 and S2 GI Palpation (GI): Soft to palpation, nontender, no hepatomegaly and no splenomegaly Auscultation: normal bowel sounds Skin General skin exam: no rashes or lesions noted and dry skin Neuro General: oriented to person, oriented to place and oriented to time Cranial nerves: Yes Equal, round and reactive pupils present Speech: No Abnormal speech present Gait exam (Neuro): Normal gait present Motor exam (neuro): no tremor noted Extrem Right upper extremity: full ROM Left upper extremity: full ROM Right lower extremity: full ROM; no edema Left lower extremity: full ROM; no edema Psych Mental Status: mental status grossly normal Speech and movement: Normal speech and movement present Affect: normal affect Attitude: cooperative Thought process: Normal thought process present Coding Level of Care Code Est Pt Level 4 (27876) Diagnoses Primary hypertension I10 Hypertension type: primary hypertension Class 3 obesity E66.813 IZZY (obstructive sleep apnea) G47.33 Additional Codes PHQ-9 - 53964 - PHQ-9 Billing: Yes ([id number]) Assessment & Plan Assessment & Plan (1) HTN (hypertension): Code(s): I10 - Essential (primary) hypertension Category: Medical Qualifiers: Hypertension type: primary hypertension Qualified Code(s): I10 - Essential (primary) hypertension Plan: Blood pressure acceptable today in office, he is now on obstructive sleep apnea machine which may be helping his blood pressure. Patient continues with lisinopril hydrochlorothiazide Goal blood pressures to remain below 140/90 (2) Class 3 obesity: Code(s): E66.813 - Obesity, class 3 Category: Medical Plan: Has been able to lose weight on GLP 1, blood pressure better controlled and patient feeling better. BMI now at 53 and at initiation of GLP 1 BMI was at 55. Patient has been able to lose more than 5% of his body weight. He would like to continue up titrating GLP 1. Advised on trying to be more physically active to get more benefit from GLP 1. (3) IZZY (obstructive sleep apnea): Code(s): G47.33 - Obstructive sleep apnea (adult) (pediatric) Category: Medical Plan: Patient has followed up with pulmonology. Has started on a CPAP machine and reports better sleep. He has been using CPAP machine on a nightly basis and of note blood pressures has been much improved. Medications: New tirzepatide (weight loss) (Zepbound) 10 mg (0.5 mL) subcut QWEEK 2 mL 1RF 4 weeks E66.813 - Obesity, class 3, G47.33 - Obstructive sleep apnea (adult) (pediatric), K76.0 - Fatty (change of) liver, not elsewhere classified On Hold tirzepatide (weight loss) (Zepbound) Hold Comment: Doctor's Order 7.5 mg (0.5 mL) subcut QWEEK 2 mL 0RF 4 weeks E66.813 - Obesity, class 3, E78.2 - Mixed hyperlipidemia, G47.33 - Obstructive sleep apnea (adult) (pediatric)
--- OUTSIDE RECORDS SUMMARY | 2025-02-08 12:44 | XMS_ITS | Clinical Summary ---
Author Organization [address] [facility] Address [address] [place] [address] Phone Care Team Providers Care Drug Abuse Social Worker Name Role Phone Richard Head Primary Care Provider Social History Tobacco Use Types Packs/Day Years Used Date Smoking Tobacco: Never Assessed Sex and Gender Information Value Date Recorded Sex Assigned at Not on file Legal Sex Male 9:48 PM EST Gender Identity Not on file Sexual Orientation Not on file Plan of Treatment Upcoming Encounters Date Type Department Care Team ([facility] Contact Info) Description 02/22/2025 9:45 AM EDT Consult Orthopedic Surgery - [place] [address] [phone] Lenin Monae, DPM [address] [address] Health Maintenance Due Date Last Done Comments DTaP,Tdap,and Td Vaccines (1 - Tdap) 2012 Hepatitis B Vaccines (1 of 3 - 19+ 3-dose series) 2012 COVID-19 Vaccine ( - 2023-2 5 season) 2024 Depression Screening 06/21/2024 HIV Screening 11/27/2024 Hepatitis C Screening 11/27/2024 [...] 5 Years) and At-Risk Patients (6 to 49 Years) Aged Out No longer eligi ble based on patient's age to complete this topic RSV Immunization Patients Un néstor 20 months Aged Out No longer eligible b ased on patient's age to complete this topic Varicella Vaccines Aged Out No longer eligible based on patient's age to complete this topic Insurance [facility] Care Teams Drug Abuse Social Worker Relationship Specialty Start Date End Date Richard Head PA [address] [place] [phone] PCP - General Physician Field Nurse Case Manager 11/27/24
--- OUTSIDE RECORDS SUMMARY | 2025-02-08 12:44 | XMS_ITS | Clinical Summary ---
Author Organization [facility] Address [address] [place] [address] Phone Care Team Providers Care Gun Welder Name Role Phone Johan Queen MD Primary Care Provider [phone] Allergies No known active allergies Medications No [...] age to complete this topic Insurance [employer] [id number] MEDICAID [facility] Address: [address] [place] [address] [place] [id number] Care Teams Gun Welder Relationship Specialty Start Date End Date Johan Queen MD [facility] [place] [address] PCP - General Pediatrics 12/12/18
== END 2025-02-08 11:47 | disposition home or self-care (01) ==
LOC: HO.HMCH 11:06
PROVIDERS: PCP Physician Assistant; Visit Provider Physician Assistant
DX: I10 Essential (primary) hypertension (principal); E66.813 Obesity, class 3; G47.33 Obstructive sleep apnea (adult) (pediatric); Z68.43 Body mass index [BMI] 50.0-59.9, adult

== ENCOUNTER 2025-02-08 11:06 | Outpatient (REF) | payer OTHER, SELFPAY ==
[2025-02-08 12:52] LABS: Hematocrit 39.9 % (42.0-52.0); Hemoglobin 13.8 g/dl (14.0-18.0); Mean Corpuscular HGB Conc 34.6 g/dl (31.0-36.0); Mean Corpuscular Hemoglobin 29.8 pg (27.0-33.0); Mean Corpuscular Volume 86.2 fL (80.0-98.0); NRBC Abs Auto 0.000 X10*3/uL (0.0-0.012); NRBC Pct Auto 0.0 /100WBC (0.0-0.2); Platelet Count 229 X10*3/uL (160-400); Red Blood Count 4.63 X10*6/uL (4.60-5.80); White Blood Count 7.4 X10*3/uL (4.8-10.8)
[2025-02-08 13:27] LABS: Alanine Aminotransferase 49 U/L (0-40); Albumin Level 4.1 g/dL (3.5-5.0); Alkaline Phosphatase 99 U/L (39-117); Anion Gap 12 (12-20); Aspartate Amino Transferase 36 U/L (5-37); Blood Urea Nitrogen 20 mg/dL (9-16); Calcium 9.0 mg/dL (8.4-10.2); Carbon Dioxide 26 mmol/L (22-29); Chloride 105 mmol/L (96-108); Cholesterol 132 mg/dL (<200); Estimated Glomerular Filt Rate > 60; HDL Cholesterol 33 mg/dL (>40); Potassium 4.2 mmol/L (3.3-5.1); Sodium 139 mmol/L (135-145); Total Protein 8.0 g/dL (6.5-8.0); Triglycerides 70 mg/dL (<150)
== END 2025-02-08 11:07 | disposition home or self-care (01) ==
LOC: HO.LAB 11:06
PROVIDERS: PCP Physician Assistant; Visit Provider Physician Assistant
DX: E78.2 Mixed hyperlipidemia (principal); I10 Essential (primary) hypertension; E66.813 Obesity, class 3; Z68.43 Body mass index [BMI] 50.0-59.9, adult; G47.33 Obstructive sleep apnea (adult) (pediatric); Z71.3 Dietary counseling and surveillance
CPT/HCPCS: 36415; 80053; 80061; 85027; 96127; 99212

== ENCOUNTER 2025-02-16 11:26 | Outpatient (REF) | payer OTHER, SELFPAY ==
--- OUTSIDE RECORDS SUMMARY | 2025-02-16 12:27 | XMS_ITS | Clinical Summary ---
Author Organization [facility] Address [address] [place] [address] Phone Care Team Providers Care Tie Binder Name Role Phone Johan Queen MD Primary Care Provider [phone] Allergies No known active allergies Medications No [...] age to complete this topic Insurance [employer] [id number] MEDICAID [facility] [place] Address: [address] [place] [address] [place] [id number] Care Teams Tie Binder Relationship Specialty Start Date End Date Johan Queen MD [facility] [facility] [place] [address] PCP - General Pediatrics 12/12/18
--- OUTSIDE RECORDS SUMMARY | 2025-02-16 12:27 | XMS_ITS | Clinical Summary ---
Author Organization [address] [facility] Address [address] [place] [address] Phone Care Team Providers Care Elevator Repairer Apprentice Name Role Phone Richard Head Primary Care Provider Social History Tobacco Use Types Packs/Day Years Used Date Smoking Tobacco: Never Assessed Sex and Gender Information Value Date Recorded Sex Assigned at Not on file Legal Sex Male 9:48 PM EST Gender Identity Not on file Sexual Orientation Not on file Plan of Treatment Upcoming Encounters Date Type Department Care Team ([facility] Contact Info) Description 02/22/2025 9:45 AM EDT Consult Orthopedic Surgery - [place] [address] [phone] Lenin Monae, DPM [address] [address] Health Maintenance Due Date Last Done Comments [...] patient's age to complete this topic Insurance [facility] Care Teams Elevator Repairer Apprentice Relationship Specialty Start Date End Date Richard Head PA [address] [place] [phone] PCP - General Physician Remote Ruby On Rails Developer 11/27/24
[2025-02-20 10:03] LABS: TS Negative Control Passed; TS Panel A 4; TS Panel B 1; TS Positive Control Passed; TSpotTB Negative (Negative)
== END 2025-02-16 11:27 | disposition home or self-care (01) ==
LOC: HO.LAB 11:26
PROVIDERS: PCP Physician Assistant; Visit Provider Physician Assistant
DX: Z11.1 Encounter for screening for respiratory tuberculosis (principal)
CPT/HCPCS: 36415; 86481

== ENCOUNTER 2025-03-26 10:16 | Outpatient (AMB) | payer OTHER, SELFPAY ==
[2025-03-26 10:19] VITALS: BP 100/62; PULSE 115; O2SAT 96; BMI 52.7
--- NOTE | 2025-03-26 10:19 | MHC.OFFVIS ---
Vital Signs 03/26/25 10:19 Height 5 ft 10 in Weight 367 lb 1.114 oz BMI 52.7 BP 100/62 Blood Pressure Location Lt brachial Position Sitting Pulse 115 H Pulse Source Pulse Oximeter Pulse Oximetry (%) 96 Oxygen Delivery Method Room Air Intake Visit Reasons: izzy Allergies No Known Allergies Allergy (Verified 03/26/25 10:23) HPI HPI izzy: Details: Richard is a pleasant 29-year-old male, never smoker with underlying severe IZZY AHI 117, HTN, ADHD, and autism spectrum disorder Today he is accompanied by his grandmother. He was initially referred by his primary care physician after a sleep study confirmed severe obstructive sleep apnea with 117 events per hour, with nocturnal hypoxemia, <88% for 35 minutes, lowest 77%. Split night study revealed resolution of apneas as well as nocturnal hypoxemia with CPAP therapy with pressure of 12 cmH20. He was started on CPAP therapy reportedly using consistently for the last 6 weeks with significant benefit in daytime fatigue and nonrestorative sleep. Unable to access compliance report at this time, will reach out to [facility]. Patient also on Zepbound and reports 22lb weight loss over the last 3-4 months since initiating. The patient also has a history of asthma, which has been asymptomatic for a while however has had an increase in nasal congestion, recently obtained Flonase. [facility] Surgical History History of surgery of head History of removal of cyst Social History Housing: House Alcohol intake: never Patient Tobacco Use Status: Never used Tobacco e-Cigarette/Vaping Use: Never Used Second Hand Smoke Exposure: No service: No Current occupational status: unemployed Cognitive needs: No Hearing needs: No Vision needs: No Review of Systems Const Denies chills, Denies excessive sweating, Denies fever(s), Denies headache(s) and Denies night sweats Eyes Denies dry eyes, Denies irritation and Denies itchy eyes ENT Reports Normal hearing present, Denies headache(s) and Denies sore throat Card Denies chest pain, Denies chest pain at rest, Denies chest pain with activity, Denies claudication, Denies leg edema, Denies dyspnea, Denies dyspnea on exertion, Denies orthopnea and Denies paroxysmal nocturnal dyspnea Resp Denies chest congestion, Denies cough, Denies excessive phlegm production, Denies pain on inspiration, Denies pain with cough, Denies dyspnea, Denies dyspnea on exertion, Denies stridor and Denies wheezing Musc Denies myalgias Neuro Reports Normal hearing present and Denies headache(s) Endo Denies excessive sweating Marcello/Lymph Denies lymphadenopathy Aller/Immun Denies itchy eyes, Denies seasonal rhinorrhea and Denies wheezing Physical Exam Vital Signs: Last Vital Signs Pulse 115 H 03/26/25 10:19 BP 100/62 03/26/25 10:19 Pulse Ox 96 03/26/25 10:19 Oxygen Delivery Method Room Air 03/26/25 10:19 BMI result Body Mass Index 52.7 Const General: cooperative, comfortable, no acute distress, well developed and alert Nutritional Appearance: obese Orientation/consciousness: patient oriented x3 Limitations: no limitations HEENT Head: Yes normal to inspection, Yes normocephalic and Yes atraumatic Ears: hearing grossly normal bilaterally and external ears normal Eyes General: appearance normal, both eyes and all related structures Eyelids: Yes eyelids normal Sclerae: sclerae normal EOM: EOMs intact bilaterally Neck Neck: Yes normal visual inspection and Yes no lymphadenopathy Lymphatic: no lymphadenopathy noted Chest Chest palpation & inspection: normal inspection of the chest Resp Effort & Inspection: normal respiratory effort, able to speak in complete sentences, no audible wheezes, no cough, no stridor, not tachypneic, no tripod positioning and no use of accessory muscles Auscultation: clear to auscultation bilaterally Cardio Jugular venous distension: no JVD Rate: regular rate Rhythm: regular rhythm Skin Other: warm, dry General skin exam: no rashes or lesions noted Neuro General: patient oriented x3 Cranial nerves: Yes Normal hearing present Cognition (Neuro): normal cognition Gait exam (Neuro): Normal gait present Extrem General: Yes normal to inspection, Yes capillary refill normal, Yes no clubbing, cyanosis or edema and Yes no pedal edema Psych Appearance: grossly normal and well kempt Speech and movement: Normal speech and movement present and Clear speech present Affect: normal affect Attitude: cooperative Thought process: Normal thought process present Thought content: Normal thought content present Insight: Good insight present (Psych) Judgement: Good judgement present (Psych) Assessment & Plan Assessment & Plan (1) IZZY (obstructive sleep apnea): Code(s): G47.33 - Obstructive sleep apnea (adult) (pediatric) Category: Medical Plan Patient has been benefitting from CPAP therapy and is motivated to continue to use. Will reach out to [facility] to obtain compliance report. Patient reportedly using >4 hours consistently with AHI less than 2. Weight loss is recommended as a long-term strategy to reduce the severity of sleep apnea events which he is working towards with the use of Zepbound. For asthma, no immediate intervention is required as the patient is currently asymptomatic, but he is advised to monitor for any respiratory symptoms, especially during allergy seasons. Encouraged patient to trial antihistamine in place of decongestant as HR elevated today. Rechecked 100 bpm. All questions were answered and patient is in agreement of plan. Will follow-up in 3 months or sooner if needed. Medications: New cetirizine (Zyrtec) 10 mg PO DAILY PRN 30 tabs 2RF allergy symptoms Coding Level of Care Code Est Pt Level 4 (24303) Diagnoses IZZY (obstructive sleep apnea) G47.33
--- OUTSIDE RECORDS SUMMARY | 2025-03-26 11:59 | XMS_ITS | Clinical Summary ---
Author Organization [facility] Address [address] [place] [address] Phone Care Team Providers Care Director Medicaid Name Role Phone Johan Queen MD Primary Care Provider [phone] Allergies No known active allergies Medications No [...] series) 05/27/1999 11/25/1998, 05/22/1994 Influenza Vaccines (#1) 2025 05/27/20 17, 05/11/2016, 03/28/2015, Additional history exists COVID-19 Vaccine ( season) 2025 DTaP,Tdap,and Td Vaccines (5 - Td or [...] age to complete this topic Insurance [employer] [id number] MEDICAID [facility] [place] Address: [address] [place] [address] [place] [address] Care Teams Director Medicaid Relationship Specialty Start Date End Date Johan Queen MD [facility] [place] [address] PCP - General Pediatrics 12/12/18
--- OUTSIDE RECORDS SUMMARY | 2025-03-26 11:59 | XMS_ITS | Clinical Summary ---
Author Organization 175 [facility] Address 175 [place] [address] Phone Care Team Providers Care Submarine Element Coordinator Name Role Phone Richard Head Primary Care Provider Allergies No known active allergies Medications tirzepatide, weight loss, (Zepbound) 2.5 mg/0.5 mL injection Inject 0.5 mL (2.5 mg total) under the skin every 7 (seven) days. Active miconazole nitrate 2 % aerosol,spray Apply topically 1 (one) time each day. 133 g 2 5 05/23/20 25 Active miconazole (Lotrimin AF) 2 % powder Apply topically 2 (two) times a day for 28 days. 70 g 3 5 03/22/20 25 Encounters Date Type Department Care Team Description 02/22/2025 9:45 AM EDT Consult Orthopedic Surgery [facility] 250 175 [facility] [address] [place] [phone] Lenin Monae, DPM Dermatophytosis of nail (Primary Dx); Tinea unguium; Tinea pedis of both feet from Last 3 Months Social History Tobacco Use Types Packs/Day Years Used Date Smoking Tobacco: Never Assessed Sex and Gender Information Value Date Recorded Sex Assigned at Not on file Legal Sex Male 9:48 PM EST Gender Identity Not on file Sexual Orientation Not on file Last Filed Vital Signs Vital Sign Reading Time Taken Comments Blood Pressure - - Pulse - - Temperature - - Respiratory Rate - - Oxygen Saturation - - Inhaled Oxygen Concentration - - Weight 167 kg (369 lb) 02/22/2025 10:01 AM EDT Height 180.3 cm (5' 11 ) 02/22/2025 10:01 AM EDT Body Mass Index 51.47 02/22/2025 10:01 AM EDT Plan of Treatment Upcoming Encounters Date Type Department Care Team (Late st Contact Info) Description 06/25/2025 3:00 PM EST Office Visit Orthopedic Surgery - [place] [address] [phone] Lenin Monae, DPM [address] [phone] Health Maintenance Due Date Last Done Comments Hepatitis B Vaccines (2 of 3 - 3-dose series) 06/19/1994 05/22/1994 IPV Vaccines (3 of 3 - 4-dose series) 05/27/1999 11/25/1998, 05/22/1994 Depression Screening 06/21/2024 HIV Screening 11/27/2024 Hepatitis C Screening 11/27/2024 Social Influencers of Health Screening 11/27/2024 COVID-19 Vaccine ( season) 2025 07/09/2021, 11/05/2020, 10/15/2020 Influenza Vaccine (#1) 2025 , 05/27/2017, 05/11/2016, Additional history exists DTaP,Tdap,and Td Vaccines (6 - Td or Tdap) 05/27/2027 05/27/2017, 08/05/2016, 11/25/1998, Additional history exists RSV Immunization Adult Patients (1 - 1-dose 75+ series) 2068 HIB Vaccines Completed 02/23/1995, 05/22/1994 MMR Vaccines Completed 11/25/1998, 04/29/1995 Varicella Vaccines Completed 11/22/2008, 11/21/1997 HPV Vaccines Completed 03/19/2014, 04/22, 03/10/2013 Meningococcal ACWY Vaccine Aged Out 03/19/2014, No longer eligible based on patient's age to complete this topic Hepatitis A Vaccines Aged Out 01/03/2019 No long er eligible based on patient's age to complete this topic Meningococcal B Vaccine Aged Out No l onger eligible based on patient's age to complete this topic Pneumococcal Vaccine: Pediatrics (0 to 5 Years) and At-Risk Patients (6 to 49 Years) Aged Out No longer eligible based on patient's age to complete this topic RSV Immunization Patients Under 20 months Aged Out No longer eligible based on patient's age to complete this topic Insurance [facility] Care Teams Submarine Element Coordinator Relationship Specialty Start Date End Date Richard Head PA [address] [place] [phone] PCP - General Physician Rent Collector 11/27/24
== END 2025-03-26 10:49 | disposition home or self-care (01) ==
LOC: HO.HPS 10:17
PROVIDERS: PCP Physician Assistant; Visit Provider Nurse Practitioner Family
DX: G47.33 Obstructive sleep apnea (adult) (pediatric) (principal)
CPT/HCPCS: 99214

== ENCOUNTER → 2025-03-26 10:16 | Outpatient (BNVA) | payer OTHER, SELFPAY | PROVIDERS: PCP Physician Assistant; Visit Provider Nurse Practitioner Family | DX: G47.33 Obstructive sleep apnea (adult) (pediatric) (principal) | CPT/HCPCS: 99212 ==

== ENCOUNTER 2025-04-02 15:24 | Outpatient (AMB) | payer OTHER, SELFPAY ==
--- OUTSIDE RECORDS SUMMARY | 2025-04-02 15:29 | XMS_ITS | Clinical Summary ---
Author Organization 175 [facility] Address 175 [place] [address] Phone Care Team Providers Care Morning Show Host Name Role Phone Richard Head Primary Care Provider [phone] Allergies No known active allergies Medications tirzepatide, [...] 02/22/2025 9:45 AM EDT Consult Orthopedic Surgery [facility] 250 175 [facility] [address] [place] [phone] Lenin Monae, DPM Dermatophytosis of nail (Primary [...] PM EST Office Visit Orthopedic Surgery - [place] [address] [phone] Lenin Monae, DPM [address] [phone] Health Maintenance Due Date Last Done Comments [...] patient's age to complete this topic Insurance [facility] PL[facility] Care Teams Morning Show Host Relationship Specialty Start Date End Date Richard Head PA [address] [place] [phone] PCP - General Physician Urology Physician 11/27/24
--- OUTSIDE RECORDS SUMMARY | 2025-04-02 15:29 | XMS_ITS | Clinical Summary ---
Author Organization [facility] Address [address] [place] [phone] Phone Care Team Providers Care Delivery Rep Name Role Phone Johan Queen MD Primary Care Provider [phone] Allergies No known active allergies Medications No [...] age to complete this topic Insurance [employer] [id number] MEDICAID [facility] Address: [address] [place] [address] [place] [address] Care Teams Delivery Rep Relationship Specialty Start Date End Date Johan Queen MD [facility] [place] [address] PCP - General Pediatrics 12/12/18
--- NOTE | 2025-04-02 15:35 | A.OFFPC_ITS ---
Vital Signs 04/02/25 15:36 04/02/25 16:07 Height 5 ft 10 in Weight 371 lb BMI 53.2 BP 170/80 H 140/78 H Blood Pressure Location Lt brachial Position Sitting Pulse 86 Pulse Source Pulse Oximeter Temp 97.5 F Temp Source Temporal Artery Scan Pulse Oximetry (%) 97 Oxygen Delivery Method Room Air Intake Visit Reasons: 6 month follow Intake Note: Patient is here to follow up on HLD, IZZY, ADHD, HTN. Fire Prevention Engineer Required: No Revenue Research Analyst: Present Accompanied by: Grand Parent Allergies No Known Allergies Allergy (Verified 04/02/25 15:49) Medication List - Last Reconciled 04/02/25 by Richard Head PA-C blood pressure monitor test once a day as needed cetirizine (Zyrtec) 10 mg PO DAILY PRN CPAP (CPAP Machine/Device) need for CPAP sitting 6-10 cm of water. [CPAP- nasal mask As directed] docusate sodium (Colace) 100 mg PO BID PRN lisinopril-hydrochlorothiazide 10-12.5 mg 1 tab PO DAILY tirzepatide (weight loss) (Zepbound) 10 mg (0.5 mL) subcut QWEEK 4 weeks triamcinolone acetonide 0.1% 1 appl topical DAILY 30 days Tobacco use date assessed: 04/02/25 Dental Screening Dental Screen Date: 02/08/25 HPI 6 month follow HPI Details The patient is a 29-year-old male presenting with multiple health concerns focusing primarily on high blood pressure, obstructive sleep apnea, ADHD and autism spectrum disorder. .. Hypertension: His blood pressure has been better since being more consistent with taking his blood pressure medication and weight loss.. Unfortunately Patient's blood pressure elevated today in office. Has been a bit under the weather lately due to viral upper respiratory illness. Has started on an obstructive sleep apnea machine which may maybe helping, Will continue his current dose of lisinopril hydrochlorothiazide and work extensively on weight reduction in hopes to reduce his blood pressure Class 3 Obesity: He continues on a GLP 1 in his weight seems to have plateaued. We discussed increasing GLP 1 dose though he would like to hold off for now. Today's BMI at 53, upon initiation of GLP 1 BMI was 55. Has noted reduce in his appetite and has a bit of a better relationship with food. . He is now in a day program and has been a bit more physically active. He has been reducing his portion sizes in trying to add more vegetables into his diet. He denies any intolerable side effects from GLP 1 in his willing to continue up titrating dose. Autism spectrum disorder:/ ADHD Has been diagnosed as a child, has been having social issues. Had a job a few years ago though was unable to continue his job due to symptoms related to his autism. Family looking for support for both his brother and him as they both have autism and ADHD. Currently unable to work or landed part-time job due to the diagnosis of ADHD and autism. Obstructive sleep apnea : Has establish care with pulmonology, has started a CPAP machine on a nightly basis and reports better sleep.. Asthma represents another long-standing issue, with recent exacerbations following a viral respiratory illness. Although managed previously, his asthma appears to augment the complexity of his respiratory concerns, especially when combined with his history of childhood asthma and intermittent seasonal allergic symptoms. Elevated liver enzymes: Liver enzymes much improved since previous lab draw as since he has lost weight. Laboratory Tests 08/22/24 02/08/25 02/16/25 09:41 12:10 11:38 Hgb 13.8 L Creatinine 1.00 AST 47 H 36 ALT 73 H 49 H Cholesterol 144 132 LDL Cholesterol, C alc 92 85 TB Test (T-Spot) C om Negative [facility] History History of surgery of head History of removal of cyst Social History Housing: House Alcohol intake: never Patient Tobacco Use Status: Never used Tobacco e-Cigarette/Vaping Use: Never Used Second Hand Smoke Exposure: No service: No Current occupational status: unemployed Cognitive needs: No Hearing needs: No Vision needs: No Questionnaire Thrive Questionnaire Date Thrive assessed: 08/17/24 I am a: Patient What is your living situation today?: I have a steady place to live Within the past 12 months, did the food you bought not last and you didn't have the money to get more?: Sometimes True Within the past 12 months, did you worry whether your food would run out before you got money to buy more?: Sometimes True Do you have trouble paying for medicines?: Yes Do you have trouble getting transportation to medical appointments?: No Do you have trouble paying your heating and electricity bill?: No Do you have trouble taking care of your child, family member or friend?: No Do you have trouble with day-to-day activities such as bathing, preparing meals, shopping, managing finances, etc.?: Yes Are you currently unemployed and looking for a job?: Yes Are you interested in more education?: Yes Please select the resources that you would like help with: Job search/training Currently or been in a relationship where the following occur: No concerns reported THRIVE Score: 2 SULEMAN-7 AMB Questionnaire SULEMAN-7 Date SULEMAN - 7 assessed: 08/17/24 Source: Developed by Drs. Bay Guevara, Tammie Pacheco, González Pennington and colleagues, with an educational wil from [employer]. Review of Systems Const Denies headache(s) Eyes Denies loss of vision ENT Denies vertigo, Denies dizziness, Denies headache(s) and Denies sore throat Card Denies chest pain, Denies leg edema and Denies lightheadedness Resp Denies cough, Denies hemoptysis and Denies wheezing GI Denies abdominal pain, Denies melena, Denies constipation, Denies diarrhea and Denies vomiting Denies dysuria, Denies urinary frequency and Denies urinary urgency Musc Denies arthralgias, Denies joint swelling, Denies numbness and Denies tingling Neuro Denies Abnormal speech present, Denies behavioral changes, Denies vertigo, Denies dizziness, Denies headache(s), Denies loss of vision, Denies memory loss, Denies numbness and Denies tingling Psych Denies anxiety, Denies behavioral changes, Denies depression, Denies memory loss and Denies panic attacks Marcello/Lymph Denies easy bleeding and Denies easy bruising Aller/Immun Denies wheezing Physical exam (Primary Care) Vital Signs: Last Vital Signs Temp 97.5 F 04/02/25 15:36 Pulse 86 04/02/25 15:36 BP 140/78 H 04/02/25 16:07 Pulse Ox 97 04/02/25 15:36 Oxygen Delivery Method Room Air 04/02/25 15:36 BMI result Body Mass Index 53.2 BMI Assessment/Plan discussion: High BMI High, discussed plan: lifestyle, weight reduction, dietary and physical activity Tobacco/Smoking Status: Tobacco use Status Tobacco use date assessed 04/02/25 04/02/25 15:42 Patient Tobacco Use Status Never used Tobacco 04/02/25 15:42 e-Cigarette/Vaping Use Never Used 04/02/25 15:42 Thrive Assessment: Date of Thrive Assessment Date Thrive assessed 08/17/24 04/02/25 15:42 Currently or been in a relationship where the following occur: No concerns reported Const Other: Obese General: healthy appearing, no acute distress, alert and awake Nutritional Appearance: well nourished Orientation/consciousness: oriented to person, oriented to place and oriented to time HENMT Ears: TM's normal bilaterally General nose exam: Normal nasal mucous membranes and turbinates present Eyes Conjunctivae: conjunctivae normal Sclerae: sclerae normal Pupils: Equal, round and reactive pupils present Neck Neck: Yes no lymphadenopathy and Yes no JVD Thyroid: Thyroid normal Carotids: no bruits Resp Effort & Inspection: normal respiratory effort and not tachypneic Auscultation: no crackles, no rales, no rhonchi and no wheezes Cardio Rate: regular rate Rhythm: regular rhythm Heart sounds: no murmurs and normal S1 and S2 GI Palpation (GI): Soft to palpation, nontender, no hepatomegaly and no splenomegaly Auscultation: normal bowel sounds Skin General skin exam: no rashes or lesions noted and dry skin Neuro General: oriented to person, oriented to place and oriented to time Cranial nerves: Yes Equal, round and reactive pupils present Speech: No Abnormal speech present Gait exam (Neuro): Normal gait present Motor exam (neuro): no tremor noted Extrem Right upper extremity: full ROM Left upper extremity: full ROM Right lower extremity: full ROM; no edema Left lower extremity: full ROM; no edema Psych Mental Status: mental status grossly normal Speech and movement: Normal speech and movement present Affect: normal affect Attitude: cooperative Thought process: Normal thought process present Office Procedures Flu Questionnaire Does the patient have a severe egg allergy?: No Does the patient have severe life threatening allergies?: No Does the patient have a fever or illness today?: No Has the patient ever had Guillain-[place] Syndrome?: No Has the patient ever had any past reaction to a flu shot?: No Immunizations Fluarix [id number] (PF) 45 mcg (15 mcg x 3)/0.5 mL IM syringe Performing Provider: Richard Head PA-C Performing Location: [facility] Administered by: Zara Edward RN on 04/02/25 16:16 Dose Route Admin Location Dispensed Lot Number Expiration Date NDC Supervisor Fabrication Department 0.5 mL IM Left Deltoid 0.5 mL [id number] 12/18/24 19025-445-34 [employer] VIS Given Date VIS Provided VIS Publication Date 04/02/25 Single Vaccine 24 Eligibility Eligibility Date Funding Source Not VFC Eligible 04/02/25 Private Boostrix Tdap 2.5 Lf unit-8 mcg-5 Lf/0.5 mL intramuscular syringe Performing Provider: Richard Head PA-C Performing Location: [facility] Administered by: Zara Edward RN on 04/02/25 16:18 Dose Route Admin Location Dispensed Lot Number Expiration Date ND Supervisor Fabrication Department 0.5 mL IM Right Deltoid 0.5 mL [id number] 04/19/27 31511-510-72 [employer] Total Dispensed Waste 0.5 mL 0 % VIS Given Date VIS Provided VIS Publication Date 04/02/25 Single Vaccine 21 Eligibility Eligibility Date Funding Source Not VFC Eligible 04/02/25 Private Coding Level of Care Code Est Pt Level 4 (75188) Diagnoses Primary hypertension I10 Hypertension type: primary hypertension Class 3 obesity E66.813 IZZY (obstructive sleep apnea) G47.33 Autism F84.0 Assessment & Plan Assessment & Plan (1) HTN (hypertension): Code(s): I10 - Essential (primary) hypertension Category: Medical Qualifiers: Hypertension type: primary hypertension Qualified Code(s): I10 - Essential (primary) hypertension Plan: Blood pressure somewhat elevated today in office. He reports he has been a bit under the weather due to a viral upper respiratory illness, he is now on obstructive sleep apnea machine which may be helping his blood pressure. Patient continues with lisinopril hydrochlorothiazide Goal blood pressures to remain below 140/90 (2) Class 3 obesity: Code(s): E66.813 - Obesity, class 3 Category: Medical Plan: Has been able to lose weight on GLP 1, blood pressure better controlled and patient feeling better. BMI now at 53 and at initiation of GLP 1 BMI was at 55. Patient has been able to lose more than 5% of his body weight. His interested in continuing GLP 1 therapy at current dose, we did discuss increasing dose for more weight loss though would like to work on lifestyle and exercise more at this time. (3) IZZY (obstructive sleep apnea): Code(s): G47.33 - Obstructive sleep apnea (adult) (pediatric) Category: Medical Plan: Patient has followed up with pulmonology. Has started on a CPAP machine and reports better sleep. He has been using CPAP machine on a nightly basis and of note blood pressures has been much improved. (4) Autism: Code(s): F84.0 - Autistic disorder Category: Medical Plan: Patient currently lives at home with his grandmother and his twin brother. He has recently started in a day program in his been much more social and active. Family is trying to get disability as patient has not been able to find any meaningful work due to his autism and ADHD. Orders: Orders Lipid Panel 04/02/25 E78.2 - Mixed hyperlipidemia Comprehensive [place]. Panel Fast 04/02/25 I10 - Essential (primary) hypertension Complete Blood Count no Diff 04/02/25 I10 - Essential (primary) hypertension Influenza [id number] Immunization 04/02/25 I10 - Essential (primary) hypertension, Z23 - Encounter for immunization TDaP Immunization 04/02/25 Z23 - Encounter for immunization Patient Instructions: Goal: Blood pressure to be below 140/90, continues to lose weight on GLP 1 along with better lifestyle choices Barriers: Adherence to physical activity and healthy eating habits
[2025-04-02 15:36] VITALS: BP 170/80; PULSE 86; TEMP 36.4; O2SAT 97; BMI 53.2
[2025-04-02 16:07] VITALS: BP 140/78
--- NOTE | 2025-04-02 16:18 | AM.OFFVISNUR ---
Vital Signs 04/02/25 15:36 04/02/25 16:07 Height 5 ft 10 in Weight 371 lb BMI 53.2 BP 170/80 H 140/78 H Blood Pressure Location Lt brachial Position Sitting Pulse 86 Pulse Source Pulse Oximeter Temp 97.5 F Temp Source Temporal Artery Scan Pulse Oximetry (%) 97 Oxygen Delivery Method Room Air Intake Visit Reasons: 6 month follow Allergies No Known Allergies Allergy (Verified 04/02/25 15:49) Medication List - Last Reconciled 04/02/25 by Richard Head PA-C blood pressure monitor test once a day as needed cetirizine (Zyrtec) 10 mg PO DAILY PRN CPAP (CPAP Machine/Device) need for CPAP sitting 6-10 cm of water. [CPAP- nasal mask As directed] docusate sodium (Colace) 100 mg PO BID PRN lisinopril-hydrochlorothiazide 10-12.5 mg 1 tab PO DAILY tirzepatide (weight loss) (Zepbound) 10 mg (0.5 mL) subcut QWEEK 4 weeks triamcinolone acetonide 0.1% 1 appl topical DAILY 30 days Office Procedures Flu Questionnaire Does the patient have a severe egg allergy?: No Does the patient have severe life threatening allergies?: No Does the patient have a fever or illness today?: No Has the patient ever had Guillain-[place] Syndrome?: No Has the patient ever had any past reaction to a flu shot?: No Immunizations Fluarix [id number] (PF) 45 mcg (15 mcg x 3)/0.5 mL IM syringe Performing Provider: Richard Head PA-C Performing Location: [facility] Administered by: Zara Edward RN on 04/02/25 16:16 Dose Route Admin Location Dispensed Lot Number Expiration Date NDC Cooling Pan Tender 0.5 mL IM Left Deltoid 0.5 mL [id number] 12/18/24 [id number] [employer] VIS Given Date VIS Provided VIS Publication Date 04/02/25 Single Vaccine 24 Eligibility Eligibility Date Funding Source Not C Eligible 04/02/25 Private Boostrix Tdap 2.5 Lf unit-8 mcg-5 Lf/0.5 mL intramuscular syringe Performing Provider: Richard Head PA-C [facility] Administered by: Zara Edward RN on 04/02/25 16:18 Dose Route Admin Location Dispensed Lot Number Expiration Date ND Cooling Pan Tender 0.5 mL IM Right Deltoid 0.5 mL [id number] 04/19/27 [id number] [employer] Total Dispensed Waste 0.5 mL 0 % VIS Given Date VIS Provided VIS Publication Date 04/02/25 Single Vaccine 21 Eligibility Eligibility Date Funding Source Not [facility] Eligible 04/02/25 Private Assessment & Plan Assessment & Plan (1) HTN (hypertension): Code(s): I10 - Essential (primary) hypertension Category: Medical Qualifiers: Hypertension type: primary hypertension Qualified Code(s): I10 - Essential (primary) hypertension (2) Class 3 obesity: Code(s): E66.813 - Obesity, class 3 Category: Medical (3) IZZY (obstructive sleep apnea): Code(s): G47.33 - Obstructive sleep apnea (adult) (pediatric) Category: Medical Orders: Orders Lipid Panel Today E78.2 - Mixed hyperlipidemia Comprehensive [place]. Panel Fast Today I10 - Essential (primary) hypertension Complete Blood Count no Diff Today I10 - Essential (primary) hypertension Influenza [id number] Immunization Today I10 - Essential (primary) hypertension, Z23 - Encounter for immunization TDaP Immunization Today Z23 - Encounter for immunization Coding Diagnoses Primary hypertension I10 Hypertension type: primary hypertension Class 3 obesity E66.813 IZZY (obstructive sleep apnea) G47.33
== END 2025-04-02 16:18 | disposition home or self-care (01) ==
LOC: HO.HMCH 15:25
PROVIDERS: PCP Physician Assistant; Visit Provider Physician Assistant
DX: I10 Essential (primary) hypertension (principal); E66.813 Obesity, class 3; Z68.43 Body mass index [BMI] 50.0-59.9, adult; G47.33 Obstructive sleep apnea (adult) (pediatric); F84.0 Autistic disorder

== ENCOUNTER → 2025-04-02 15:24 | Outpatient (BNVA) | payer OTHER, SELFPAY | PROVIDERS: PCP Physician Assistant; Visit Provider Physician Assistant | DX: I10 Essential (primary) hypertension (principal); E66.813 Obesity, class 3; F84.0 Autistic disorder; F90.9 Attention-deficit hyperactivity disorder, unspecified type; G47.33 Obstructive sleep apnea (adult) (pediatric); J45.909 Unspecified asthma, uncomplicated; E78.2 Mixed hyperlipidemia; Z23 Encounter for immunization; Z99.89 Dependence on other enabling machines and devices; Z68.43 Body mass index [BMI] 50.0-59.9, adult | CPT/HCPCS: 90471; 90472; 90656; 90715; 99212 ==